=== PATIENT | male | born 1950 | race Caucasian/White ===

== ENCOUNTER 2020-09-28 12:07 | Inpatient (IN) | payer MEDICARE, OTHER ==
--- NOTE | 2020-09-28 12:55 | ED ---
General Adult HPI - General Chief complaint: Recheck/Abnormal Lab/Rx Stated complaint: bilat feet swelling Time Seen by Provider: 09/28/20 12:26 Source: patient, family, RN notes reviewed Mode of arrival: wheelchair Limitations: physical limitation - History of Present Illness Initial comments: Patient is a pleasant 69-year-old male presenting to the emergency department with his brother for evaluation of his feet. Patient brother generally checks on him however had surgery and was able to get over there for a few weeks. Patient does have some baseline memory problems. Patient states his feet do not bother him. Brother states when he took his socks off there was a strand of cough around the left great toe. Patient states feet look bad yesterday and look a little bit worse today. No fevers. Brother states patient does drink a lot of alcohol however patient denies this. - Related Data Home Medications Medication Instructions Recorded Confirmed No Known Home Medications 09/28/20 09/28/20 Allergies Allergy/AdvReac Type Severity Reaction Status Date / Time No Known Allergies Allergy Verified 09/28/20 13:40 Review of Systems ROS Statement: Those systems with pertinent positive or pertinent negative responses have been documented in the HPI. ROS Other: All systems not noted in ROS Statement are negative. Constitutional: Denies: fever Eyes: Denies: eye pain ENT: Denies: ear pain Respiratory: Denies: cough Cardiovascular: Denies: chest pain Endocrine: Denies: fatigue Gastrointestinal: Denies: abdominal pain Genitourinary: Denies: dysuria Musculoskeletal: Denies: back pain Skin: Reports: as per HPI Past Medical History Past Medical History: Unable to Obtain History of Any Multi-Drug Resistant Organisms: None Reported Past Surgical History: Unable to Obtain Past Psychological History: No Psychological Hx Reported Smoking Status: Current every day smoker Past Alcohol Use History: Abuse, Daily, Heavy Past Drug Use History: None Reported General Exam Limitations: physical limitation General appearance: alert, in no apparent distress Head exam: Present: normocephalic Eye exam: Present: normal appearance ENT exam: Present: normal oropharynx Neck exam: Present: normal inspection Respiratory exam: Present: normal lung sounds bilaterally Cardiovascular Exam: Present: regular rate, normal rhythm Expanded Peripheral pulses: 2+: Dorsalis Pedis (R), Dorsalis Pedis (L) GI/Abdominal exam: Present: soft. Absent: tenderness Extremities exam: Present: other (Left great toe with swelling and discoloration, laceration on the dorsal aspect with contaminated hair. Nontender. Right third and fourth toes with swelling and third toe with dorsal small skin laceration as well also contaminated with hair) Neurological exam: Present: alert Psychiatric exam: Present: normal affect, normal mood Skin exam: Present: other (Left great toe swelling and dark discoloration. Mild discoloration right third and fourth toes numb erythema dorsal right foot near the toes extending towards the midfoot) Course Vital Signs 09/28/20 09/28/20 12:15 13:45 Temperature 98.4 F Pulse Rate 87 82 Respiratory 18 18 Rate Blood Pressure 152/89 128/81 O2 Sat by Pulse 98 99 Oximetry EKG Findings - EKG Comments: EKG Findings:: Normal sinus rhythm 89. MS 16. QRS 144. QT 428. QTC 520. Normal axis. Right bundle branch block. No acute ST change. Medical Decision Making - Medical Decision Making Patient reevaluated. Patient and family updated on results and plan. Case was discussed in detail with Dr. coulter, who will admit covering hospital call. - Lab Data Result diagrams: 09/28/20 12:55 09/28/20 12:55 Lab Results 09/28/20 09/28/20 09/28/20 Range/Units 12:55 12:55 12:55 WBC 4.3 (3.8-10.6) k/uL RBC 4.95 (4.30-5.90) m/uL Hgb 15.6 (13.0-17.5) gm/dL Hct 45.1 (39.0-53.0) % MCV 91.0 (80.0-100.0) fL MCH 31.6 (25.0-35.0) pg MCHC 34.7 (31.0-37.0) g/dL RDW 12.7 (11.5-15.5) % Plt Count 328 (150-450) k/uL MPV 7.3 Neutrophils % 64 % Lymphocytes % 27 % Monocytes % 6 % Eosinophils % 1 % Basophils % 0 % Neutrophils # 2.8 (1.3-7.7) k/uL Lymphocytes # 1.2 (1.0-4.8) k/uL Monocytes # 0.3 (0-1.0) k/uL Eosinophils # 0.1 (0-0.7) k/uL Basophils # 0.0 (0-0.2) k/uL PT 11.1 (9.0-12.0) sec INR 1.0 (<1.2) APTT 23.8 (22.0-30.0) sec Sodium 136 L (137-145) mmol/L Potassium 3.4 L (3.5-5.1) mmol/L Chloride 94 L (98-107) mmol/L Carbon Dioxide 34 H (22-30) mmol/L Anion Gap 8 mmol/L BUN 6 L (9-20) mg/dL Creatinine 0.55 L (0.66-1.25) mg/dL Est GFR (CKD-EPI)AfAm >90 (>60 ml/min/1.73 sqM) Est GFR (CKD-EPI)NonAf >90 (>60 ml/min/1.73 sqM) Glucose 196 H (74-99) mg/dL Plasma Lactic Acid Maximiliano (0.7-2.0) mmol/L Calcium 9.4 (8.4-10.2) mg/dL Total Bilirubin 1.3 (0.2-1.3) mg/dL AST 65 H (17-59) U/L ALT 20 (4-49) U/L Alkaline Phosphatase 142 H (38-126) U/L Total Protein 7.2 (6.3-8.2) g/dL Albumin 4.0 (3.5-5.0) g/dL Serum Alcohol <10 mg/dL Coronavirus (PCR) (Not Detectd) 09/28/20 09/28/20 Range/Units 12:55 12:59 WBC (3.8-10.6) k/uL RBC (4.30-5.90) m/uL Hgb (13.0-17.5) gm/dL Hct (39.0-53.0) % MCV (80.0-100.0) fL MCH (25.0-35.0) pg MCHC (31.0-37.0) g/dL RDW (11.5-15.5) % Plt Count (150-450) k/uL MPV Neutrophils % % Lymphocytes % % Monocytes % % Eosinophils % % Basophils % % Neutrophils # (1.3-7.7) k/uL Lymphocytes # (1.0-4.8) k/uL Monocytes # (0-1.0) k/uL Eosinophils # (0-0.7) k/uL Basophils # (0-0.2) k/uL PT (9.0-12.0) sec INR (<1.2) APTT (22.0-30.0) sec Sodium (137-145) mmol/L Potassium (3.5-5.1) mmol/L Chloride (98-107) mmol/L Carbon Dioxide (22-30) mmol/L Anion Gap mmol/L BUN (9-20) mg/dL Creatinine (0.66-1.25) mg/dL Est GFR (CKD-EPI)AfAm (>60 ml/min/1.73 sqM) Est GFR (CKD-EPI)NonAf (>60 ml/min/1.73 sqM) Glucose (74-99) mg/dL Plasma Lactic Acid Maximiliano 2.3 H* (0.7-2.0) mmol/L Calcium (8.4-10.2) mg/dL Total Bilirubin (0.2-1.3) mg/dL AST (17-59) U/L ALT (4-49) U/L Alkaline Phosphatase (38-126) U/L Total Protein (6.3-8.2) g/dL Albumin (3.5-5.0) g/dL Serum Alcohol mg/dL Coronavirus (PCR) Not Detected (Not Detectd) - Radiology Data Radiology results: image reviewed (X-ray left foot without convincing evidence for Ostermann myelitis. X-ray right foot concerning for osteomyelitis second middle phalangeal shaft.) Disposition Clinical Impression: Osteomyelitis Disposition: ADMITTED IP TO THIS HOSP Is patient prescribed a controlled substance at d/c from ED?: No Referrals: None,Stated [Primary Care Provider] - 1-2 days Decision Time: 14:16
[2020-09-28 13:21] LABS: Basophils % (A) 0 %; Eosinophils # (A) 0.1 k/uL (0-0.7); Eosinophils % (A) 1 %; HCT 45.1 % (39.0-53.0); HGB 15.6 gm/dL (13.0-17.5); Lymphocytes # (A) 1.2 k/uL (1.0-4.8); Lymphocytes % (A) 27 %; MCH 31.6 pg (25.0-35.0); MCHC 34.7 g/dL (31.0-37.0); Mean Platelet Volume 7.3; Monocytes # (A) 0.3 k/uL (0-1.0); Monocytes % (A) 6 %; Neutrophils # (A) 2.8 k/uL (1.3-7.7); Neutrophils % (A) 64 %; Platelet Count 328 k/uL (150-450); RBC 4.95 m/uL (4.30-5.90); RDW 12.7 % (11.5-15.5); WBC 4.3 k/uL (3.8-10.6)
[2020-09-28 13:31] LABS: Partial Thromboplastin Time 23.8 sec (22.0-30.0); Prothrombin Time 11.1 sec (9.0-12.0)
[2020-09-28 13:47] LABS: ALT 20 U/L (4-49); AST 65 U/L (17-59); African American GFR (CKD) >90 (>60 ml/min/1.73 sqM); Alcohol <10 mg/dL; Alkaline Phosphatase 142 U/L (38-126); Anion Gap 8 mmol/L; Blood Urea Nitrogen 6 mg/dL (9-20); Calcium 9.4 mg/dL (8.4-10.2); Carbon Dioxide 34 mmol/L (22-30); Chloride 94 mmol/L (98-107); Glucose 196 mg/dL (74-99); Non-African American GFR(CKD) >90 (>60 ml/min/1.73 sqM); Potassium 3.4 mmol/L (3.5-5.1); Sodium 136 mmol/L (137-145); Total Bilirubin 1.3 mg/dL (0.2-1.3); Total Protein 7.2 g/dL (6.3-8.2)
--- NOTE | 2020-09-28 13:51 | XR ---
EXAMINATION TYPE: XR chest 2V DATE OF EXAM: 09/28/2020 COMPARISON: None HISTORY: 69-year-old male with weakness TECHNIQUE: AP and lateral views FINDINGS: Heart upper limits of normal size. Aorta and pulmonary vasculature are within normal limits. Hazy beka g densities relating to portable technique and patient body habitus. No yuri consolidation or pleura l effusion. IMPRESSION: No definite acute process.
--- NOTE | 2020-09-28 13:54 | XR ---
EXAMINATION TYPE: XR foot complete bilateral DATE OF EXAM: 09/28/2020 Comparison: None Clinical History: 69-year-old male multiple wounds, pain, infection Findings: Left: Os intermetatarseum noted on the lateral view. No discrete lytic destruction identified. Mild degener ative change of the first MTP joint. Right: Moderate degenerative change of the first MTP joint with bunion formation. Some focal osteolysis invo lving the lateral plantar aspect of the second middle phalangeal shaft. The AP and oblique views are annotated. No additional discrete lytic destruction is seen. Impression: 1. Left: No convincing evidence for osteomyelitis at this time. 2. Right: Focal osteolysis involving the lateral plantar aspect of the second middle phalangeal shaft . Findings highly concerning for osteomyelitis. 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
[2020-09-28] MEDS ORDERED: VANCOMYCIN IV PER PHARMACY 1 EACH MISC MISCELLANE PRN (14:19)
[2020-09-28] MEDS ORDERED: NALOXONE 0.4 MG/ML 1 ML VIAL IV PRN (14:20)
[2020-09-28] MEDS ORDERED: VANCOMYCIN 1,500 MG in SODIUM CHLORIDE 0.9% 250 ML IVPB STA (14:27)
[2020-09-28] MEDS ORDERED: LORazepam 2 MG/ML INJ IV PRN ×2 (14:28)
[2020-09-28] MEDS ORDERED: PIPERACILLIN-TAZOBACTAM 3.375 GM in SODIUM CHLORIDE 0.9% 100 ML IVPB SCH (16:00)
[2020-09-28] MEDS ORDERED: TEMAZEPAM 15 MG CAP PO PRN (16:57)
[2020-09-28] MEDS: THIAMINE 100 MG TAB PO SCH (17:39)
--- NOTE | 2020-09-28 17:56 | HP ---
HISTORY AND PHYSICAL DATE OF SERVICE: 09/28/2020 CHIEF COMPLAINT: Bilateral feet swelling and ulceration. HISTORY OF PRESENT ILLNESS: This 69-year-old gentleman with a past medical history of multiple medical problems, including history of ETOH, history of memory impairment, dementia, history of heavy alcohol abuse and nicotine dependence, not being followed by any primary physician, apparently was living by himself. The patient's brother apparently was taking care of him and the brother apparently went for surgery and has not been able to be there for the past few weeks. The patient was found to have bilateral leg ulcers, pain and difficulties and gangrene, and the patient was taken to [facility] and admitted for further evaluation and treatment. The patient had features of early sepsis, also. Lactic acid was elevated at 2.3. COVID-19 was negative. There is no history of any fever, rigor or chills. No history of headache, loss of consciousness, seizures. PAST MEDICAL HISTORY: History of memory impairment, ETOH, nicotine dependence. HOME MEDICATIONS: None. ALLERGIES: NONE. FAMILY HISTORY: History of CAD, CABG. SOCIAL HISTORY: History of smoking, alcohol as mentioned. REVIEW OF SYSTEMS: ENT: Diminished hearing. Diminished vision. CARDIOVASCULAR SYSTEM: No angina, palpitations. RESPIRATORY SYSTEM: No cough, hemoptysis. GI: No nausea, vomiting. : No dysuria or retention. NERVOUS SYSTEM: No numbness, weakness. ALLERGY/IMMUNOLOGY: No asthma, hayfever. MUSCULOSKELETAL: As mentioned earlier. HEMATOLOGY/ONCOLOGY: No history of anemia. ENDOCRINE: No history of diabetes, hypothyroidism. CONSTITUTIONAL: As mentioned earlier. DERMATOLOGY: Negative. RHEUMATOLOGY: Negative. PSYCHIATRY: As mentioned earlier. PHYSICAL EXAMINATION: Patient alert and oriented x3. Pulse 70, blood pressure 148/80, respiration 17, temperature 98.2, pulse ox 94% on room air. HEENT: Conjunctivae normal. Oral mucosa moist. NECK: No jugular venous distention. No carotid bruit. No lymph node enlargement. CARDIOVASCULAR SYSTEM: S1, S2 muffled. No S3. No S4. RESPIRATORY SYSTEM: Breath sounds diminished at the bases. A few scattered rhonchi and crackles. ABDOMEN: Soft, non-tender. No mass palpable. LEGS: Significant bilateral leg ulcerations and evidence of cellulitis and gangrene also present. SKIN: As mentioned earlier. JOINTS: No active deforming arthropathy. NERVOUS SYSTEM: Higher functions as mentioned earlier. No focal motor deficit except some weakness in both lower legs. LABS: WBC 4.3, hemoglobin 15.2. Sodium 136, potassium 3.4. Plasma lactic acid 2.3. ASSESSMENT: 1. Bilateral leg gangrene and ulcerations with sepsis, present on admission. 2. Hyponatremia. 3. Hypokalemia. 4. Elevated plasma lactic acid. 5. Elevated AST. 6. History of ETOH. 7. History of nicotine dependence. 8. Possible depression. 9. History of dementia, memory impairment. 10.FULL CODE. RECOMMENDATIONS AND DISCUSSION: In this 69-year-old gentleman who presented with multiple complex medical issues, we will monitor the patient closely, continue the current medications, continue with symptomatic treatment. Will initiate broad-spectrum IV antibiotics, infectious disease evaluation. I would also recommend vascular surgery consultation. Other than that, [facility] protocol. PT/OT evaluation, possible ECF rehab. bible worker and skilled nursing case manager to evaluate the home situation. Overall prognosis remains extremely guarded because of multiple complex medical issues. Further recommendations to follow. MMODL / IJN: [id number] /
--- NOTE | 2020-09-28 18:38 | P.GSCN ---
History of Present Illness History of present illness: 69-year-old white male came to the emergency room with history of deep wound on the left foot big toe at the metatarsophalangeal joint on the dorsal aspect deep to the joint. And also right foot second toe has a deep wound on the dorsal aspect of the second toe patient has history of dementia does not remember how this happened. Patient also has a history of drinking on daily basis with smoking. Medical history is not known and patient has no primary care physician Neck examination neck is supple no bruit appreciated Chest clear first and second sound present Abdomen soft nontender Vascular examination right femoral is not palpable left femoral is 2+ posterior tibial dorsal pedis by the Doppler patient has a deep wound on his left foot at metatarsophalangeal joint down to the bone and also on the right foot second toe defect noted on the second toe Plan is IV antibiotic and we did the wound care on the both right and left foot we will get history from his brother and most likely he will lose his left foot toe we'll follow with you Past Medical History Past Medical History: Memory Impairment Additional Past Medical History / Comment(s): ETOH/past withdrawal with shaking and incontinence of stool, disc problems/cervical and back pain-was on morphine P.O for 6 years then taken off approximately one year ago, bilateral feet numbness, 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 History of Any Multi-Drug Resistant Organisms: None Reported Past Surgical History: Ear Surgery Additional Past Surgical History / Comment(s): L ear surgery/wire Past Anesthesia/Blood Transfusion Reactions: No Reported Reaction Smoking Status: Current every day smoker - Past Family History Father Family Medical History: Coronary Artery Disease (CAD) Additional Family Medical History / Comment(s): Father had CABG. He lived to be 92 yrs old. Mother Family Medical History: No Reported History Additional Family Medical History / Comment(s): Mother lived to be 90yrs old. She was a smoker. Medications and Allergies Home Medications Medication Instructions Recorded Confirmed Type No Known Home Medications 09/28/20 09/28/20 History Allergies Allergy/AdvReac Type Severity Reaction Status Date / Time No Known Allergies Allergy Verified 09/28/20 13:40 Surgical - Exam Vital Signs Temp Pulse Resp BP Pulse Ox 98.4 F 87 18 152/89 98 09/28/20 12:15 09/28/20 12:15 09/28/20 12:15 09/28/20 12:15 09/28/20 12:15 Results - Labs 09/28/20 12:55 09/28/20 12:55 Abnormal Lab Results - Last 24 Hours (Table) 09/28/20 09/28/20 Range/Units 12:55 12:59 Sodium 136 L (137-145) mmol/L Potassium 3.4 L (3.5-5.1) mmol/L Chloride 94 L (98-107) mmol/L Carbon Dioxide 34 H (22-30) mmol/L BUN 6 L (9-20) mg/dL Creatinine 0.55 L (0.66-1.25) mg/dL Glucose 196 H (74-99) mg/dL Plasma Lactic Acid Maximiliano 2.3 H* (0.7-2.0) mmol/L AST 65 H (17-59) U/L Alkaline Phosphatase 142 H (38-126) U/L Diabetes panel 09/28/20 Range/Units 12:55 Sodium 136 L (137-145) mmol/L Potassium 3.4 L (3.5-5.1) mmol/L Chloride 94 L (98-107) mmol/L Carbon Dioxide 34 H (22-30) mmol/L BUN 6 L (9-20) mg/dL Creatinine 0.55 L (0.66-1.25) mg/dL Glucose 196 H (74-99) mg/dL Calcium 9.4 (8.4-10.2) mg/dL AST 65 H (17-59) U/L ALT 20 (4-49) U/L Alkaline Phosphatase 142 H (38-126) U/L Total Protein 7.2 (6.3-8.2) g/dL Albumin 4.0 (3.5-5.0) g/dL Calcium panel 09/28/20 Range/Units 12:55 Calcium 9.4 (8.4-10.2) mg/dL Albumin 4.0 (3.5-5.0) g/dL Pituitary panel 09/28/20 Range/Units 12:55 Sodium 136 L (137-145) mmol/L Potassium 3.4 L (3.5-5.1) mmol/L Chloride 94 L (98-107) mmol/L Carbon Dioxide 34 H (22-30) mmol/L BUN 6 L (9-20) mg/dL Creatinine 0.55 L (0.66-1.25) mg/dL Glucose 196 H (74-99) mg/dL Calcium 9.4 (8.4-10.2) mg/dL Adrenal panel 09/28/20 Range/Units 12:55 Sodium 136 L (137-145) mmol/L Potassium 3.4 L (3.5-5.1) mmol/L Chloride 94 L (98-107) mmol/L Carbon Dioxide 34 H (22-30) mmol/L BUN 6 L (9-20) mg/dL Creatinine 0.55 L (0.66-1.25) mg/dL Glucose 196 H (74-99) mg/dL Calcium 9.4 (8.4-10.2) mg/dL Total Bilirubin 1.3 (0.2-1.3) mg/dL AST 65 H (17-59) U/L ALT 20 (4-49) U/L Alkaline Phosphatase 142 H (38-126) U/L Total Protein 7.2 (6.3-8.2) g/dL Albumin 4.0 (3.5-5.0) g/dL
[2020-09-28] MEDS: HEPARIN SODIUM,PORCINE 5,000 UNIT/ML 1 ML VIAL SQ SCH (20:00)
[2020-09-28] MEDS: FORMOTEROL FUMARATE 20 MCG/2 ML NEBU INHALATION SCH (20:11)
--- NOTE | 2020-09-28 23:25 | CONS ---
CONSULTATION DATE OF SERVICE: 09/28/2020 REASON FOR STAY: Left big toe and right second toe wound and concern for underlying osteomyelitis. INTERVAL HISTORY: The patient is a 69-year-old man with past medical history significant for baseline memory problems and has been taking care of at home by his brother. Apparently the brother did have some surgery and was not able to check on him for the last few weeks. When he went to see him today, the patient was noticed to have a wound on his left big toe and right second toe with some foul-smelling drainage on the socks. The patient mentioned his stools have been getting worse for the last few days. The patient denies having any history of any trauma. He did have mild dull aching pain to the left big toe and right second toe, 3 to 4 out of 10 and no radiation. The patient denies having any fever or any chills. With these symptoms, the patient was evaluated by the ER physician. On arrival to the ER, the patient was afebrile. The patient did have a normal white count. He did have x-rays of both feet. Left foot did not show any osteomyelitis. Right foot did show some osteomyelitis to the second toe. The patient did have mildly elevated lactic is 2.3. Creatinine was normal. Laboy PCR was negative. The patient was started on Zosyn and vancomycin and admitted to the hospital. Infectious Disease was consulted for further management of antibiotic therapy. REVIEW OF SYSTEMS: Positive points have been mentioned in HPI. Rest of systems are negative. PAST MEDICAL HISTORY: Memory impairment, alcohol abuse and nicotine dependence. PAST SURGICAL HISTORY: History of no major surgeries. FAMILY HISTORY: Positive coronary artery disease. SOCIAL HISTORY: Positive smoking and drinking. No drug use. ALLERGIES: No known drug allergies. MEDICATIONS: The patient is currently on Zosyn, Eliquis, folic acid, heparin, Dilaudid, Ativan, multivitamin, Narcan, nicotine patch, Protonix, Restoril and vancomycin. PHYSICAL EXAMINATION: Blood pressure 136/76, pulse of 72, temperature 98.9. He is 94% on room air. General description: The patient is an elderly male lying in bed in no distress. No tachypnea or accessory muscles of respiration use. HEENT: Examination shows no pallor or scleral icterus. Oral mucous membranes dry. NECK: Trachea central. No thyromegaly. LUNGS: Unlabored breathing. Clear to auscultation anteriorly. No wheeze or crackles. HEART S1, S2. Regular rate and rhythm. ABDOMEN: Soft, no tenderness. No guarding. No rigidity. EXTREMITIES: No edema of the feet. Examination of the left big toe did have a deep wound with possible extension down to the interphalangeal joint with some instability, foul-smelling. Cultures were obtained. Right 2nd toe wound does not look as deep. With the surrounding swelling, redness and minimal foul-smelling drainage. NEUROLOGICAL: Patient is awake, alert, oriented x3. Mood and affect normal. LABS: Hemoglobin is 15.6, white count of 4.3, BUN of 6, creatinine 0.55. Lactic acid 2.3. X- ray report as mentioned above. DIAGNOSTIC IMPRESSION AND PLAN: 1. Patient with left big toe wound, which seems to be deep extending to the interphalangeal joint concerning for possible septic arthritis and likely osteomyelitis and the x-ray did not show any abnormality and we will need to cover for the Gram-positive as well as Gram-negative pathogen in this patient with likely underlying PAD and significant history of smoking. 2. Right second toe wound with neurological evidence of osteo. PLAN: 1. Vancomycin, pharmacy to dose target of 15 while watching his kidney function closely. 2. Discontinue Zosyn and Unasyn to decrease risk of nephrotoxicity. 3. We will follow on his clinical condition and culture to further adjust medication if needed. Thank you for this consultation. We will follow this patient along with you. MMODL / IJN: [id number] /
[2020-09-28] MEDS: VANCOMYCIN 1,500 MG in SODIUM CHLORIDE 0.9% 250 ML IVPB SCH (23:34)
[2020-09-28] MEDS: AMPICILLIN-SULBACTAM 3 GM in SODIUM CHLORIDE 0.9% 100 ML IVPB SCH (23:34)
[2020-09-29] MEDS: AMPICILLIN-SULBACTAM 3 GM in SODIUM CHLORIDE 0.9% 100 ML IVPB SCH ×4 (05:20→23:09)
[2020-09-29] MEDS: VANCOMYCIN 1,500 MG in SODIUM CHLORIDE 0.9% 250 ML IVPB SCH ×3 (07:32→23:08)
[2020-09-29] MEDS: HEPARIN SODIUM,PORCINE 5,000 UNIT/ML 1 ML VIAL SQ SCH ×2 (07:35→19:59)
[2020-09-29] MEDS: PANTOPRAZOLE 40 MG TABLET PO SCH (08:09)
[2020-09-29] MEDS: THIAMINE 100 MG TAB PO SCH ×2 (08:17→17:23)
[2020-09-29] MEDS: MULTIVITAMINS, THERA 1 EACH TAB PO SCH (08:18)
[2020-09-29] MEDS: NICOTINE 14MG/24HR PATCH TRANSDERM SCH (08:19)
[2020-09-29] MEDS: FORMOTEROL FUMARATE 20 MCG/2 ML NEBU INHALATION SCH ×2 (08:48→20:56)
[2020-09-29 08:53] LABS: Appearance,Urine Clear (Clear); Bilirubin,Urine Negative (Negative); Blood,Urine Negative (Negative); Color,Urine Yellow; Glucose,Urine (UA) Negative (Negative); Ketones,Urine Negative (Negative); Leukocyte Esterase,Urine Negative (Negative); Nitrite,Urine Negative (Negative); Protein,Urine Negative (Negative); Specific Gravity,Urine 1.018 (1.001-1.035)
[2020-09-29 09:13] LABS: Basophils # (A) 0.02 X 10*3/uL (0.00-0.10); Basophils % (A) 0.5 %; Eosinophils # (A) 0.03 X 10*3/uL (0.04-0.35); Eosinophils % (A) 0.7 %; HCT 37.4 % (39.6-50.0); Lymphocytes # (A) 1.22 X 10*3/uL (0.90-5.00); MCH 31.7 pg (27.0-32.0); MCHC 34.8 g/dL (32.0-37.0); MCV 91.2 fL (80.0-97.0); Mean Platelet Volume 9.7 fL (9.5-12.2); Monocytes # (A) 0.42 X 10*3/uL (0.20-1.00); Neutrophils % (A) 59.6 %; Platelet Count 269 X 10*3/uL (140-440); RDW 12.2 % (11.5-14.5)
[2020-09-29 09:23] LABS: African American GFR (CKD) 119.7 (60.0-200.0); BUN/Creat Ratio 16.67 Ratio (12.00-20.00); Calcium 8.6 mg/dL (8.7-10.3); Non-African American GFR(CKD) 103.3 (60.0-200.0)
[2020-09-29] MEDS: LORazepam 2 MG/ML INJ IV PRN ×2 (11:05→19:58)
[2020-09-29] MEDS: FOLIC ACID 1 MG TAB PO SCH (12:08)
[2020-09-29] MEDS ORDERED: Potassium Replacement Protocol 1 EACH MISC MISCELLANE PRN (12:51)
[2020-09-29] MEDS ORDERED: LACTATED RINGERS 1,000 ML IV ONE (13:36)
[2020-09-29 13:37] LABS: Glucose,Whole Blood 115 mg/dL (75-99)
[2020-09-29] MEDS: POTASSIUM CHLORIDE 20 MEQ in WATER FOR INJECTION 1 100ML.BAG IVPB SCH ×3 (13:37→18:00)
[2020-09-29] MEDS ORDERED: MIDAZOLAM 2 MG/2 ML VIAL ONE (13:56)
[2020-09-29] MEDS ORDERED: fentaNYL (PF) 50 MCG/ML 2 ML AMP ONE (13:56)
[2020-09-29] MEDS ORDERED: PROPOFOL 10 MG/ML 20 ML VIAL IV ONE (13:56)
[2020-09-29] MEDS ORDERED: SODIUM CHLORIDE 0.9% 250 ML IV ONE (14:02)
[2020-09-29] MEDS ORDERED: LIDOCAINE 1% INJ 10MG/ML (20 ML MDV) SQ ONE ×2 (14:14)
[2020-09-29] MEDS: ENALAPRILAT 1.25 MG/ML 1 ML VIAL IV ONE ×2 (15:40→15:56)
[2020-09-29] MEDS ORDERED: Magnesium Replacement Protocol 1 EACH MISC MISCELLANE PRN (16:08)
--- NOTE | 2020-09-29 16:37 | PN ---
PROGRESS NOTE DATE OF SERVICE: 09/29/2020 This 69-year-old gentleman who was admitted with bilateral leg gangrene is being closely monitored. The patient also had some change in mental status also. Patient had history of EtOH. EtOH level was less than 10. Dr. Ruvalcaba is planning surgery. White count is 4.2, sodium is 137 and potassium is also 3 which is hypokalemic. PAST MEDICAL HISTORY: Reviewed. REVIEW OF SYSTEMS: CARDIOVASCULAR SYSTEM: No angina, RESPIRATORY SYSTEM: As mentioned earlier. GI: As mentioned earlier. : No dysuria. NERVOUS SYSTEM: No numbness or weakness. CURRENT MEDICATIONS: Current medications are reviewed and include Unasyn, folic acid, heparin, Dilaudid, Ativan, Protonix, vancomycin. PHYSICAL EXAMINATION: The patient is alert and oriented x3. Pulse is 69, blood pressure 160/91, respirations 16, temperature 97.5, pulse ox 98% on room air. HEENT: Conjunctivae normal. NECK: No jugular venous distention. CARDIOVASCULAR: S1, S2 muffled. RESPIRATORY: Breath sounds diminished at the bases. A few rhonchi. No crackles. ABDOMEN: Soft, nontender. LEGS: Bilateral leg cellulitis and edema and swelling and weakness also present. NERVOUS SYSTEM: Diffuse weakness in the lower legs. LABS: WBC 4.2, hemoglobin 13. ASSESSMENT: 1. Bilateral leg gangrene and ulcerations with sepsis, present on admission. 2. Hyponatremia. 3. Hypokalemia. 4. Possible peripheral neuropathy. 5. Elevated plasma lactic acid. 6. Elevated AST. 7. History of EtOH. 8. History of nicotine dependence. 9. Possible depression. 10.History of dementia, memory impairment. 11.Poor social support. 12.FULL CODE. RECOMMENDATIONS AND DISCUSSION: I recommend to continue current medications, continue symptomatic treatment. Otherwise, continue with the broad-spectrum IV antibiotics. Cultures of the are pending. We will follow the patient closely with Dr. Ruvalcaba. Supplement potassium and check magnesium and magnesium and potassium protocols. Prognosis guarded because of multiple complex medical issues. Continue with IV Unasyn and follow the cultures. Guarded prognosis. Further recommendations to follow. MMODL / IJN: [id number] / MTDD
--- NOTE | 2020-09-29 17:10 | OP ---
DATE OF PROCEDURE 09/29/2020 OPERATIVE REPORT PREOPERATIVE DIAGNOSES: 1. Infected wound, left foot big toe. 2. Right foot second toe infected wound. POSTOPERATIVE DIAGNOSES: 1. Infected wound, left foot big toe. 2. Right foot second toe infected wound. OPERATION: 1. Left big toe amputation at metatarsophalangeal joint. 2. Right foot second toe amputation at metatarsophalangeal joint. ANESTHESIA: IV sedation. PROCEDURE IN DETAIL: This patient was brought to the operating room. Left foot and right foot were prepped and draped in the usual sterile manner. Circular incision was made at the metatarsophalangeal joint area. Anterior flap was created and tendons were divided and incision was extended to the posterior aspect of the foot at metatarsophalangeal joint, deepened through skin, fat and fascia, and tendons were divided. There were some digital vessels which were suture-ligated. There were some ligaments which were divided at the metatarsophalangeal joint. Specimen was removed. Wound was copiously irrigated with saline and hemostasis was well controlled. Fascia and subcutaneous tissue was approximated with 3-0 Vicryl and skin was closed with 4-0 nylon with interrupted sutures. After that, incision was made on the right foot second toe. Incision was made on the plantar aspect, elliptical incision, deepened through skin, fat and fascia and the tendons. It went circumferentially around the second toe to the plantar aspect of the foot and tendons were divided and digital vessels were suture-ligated. Specimen was removed. Hemostasis was well controlled. Wound was irrigated with saline. Incision was closed in 2 layers using 3-0 Vicryl and skin was closed with 4-0 nylon with interrupted suture. Dressing was applied. Patient tolerated the procedure well. MMODL / IJN: [id number] / [facility]ITALAmita
[2020-09-29] MEDS: cloNIDine HCL 0.1 MG TAB PO PRN (20:16)
[2020-09-29] MEDS: POTASSIUM CHLORIDE ER 20 MEQ TAB.ER PO SCH (23:07)
--- NOTE | 2020-09-29 23:36 | PN ---
PROGRESS NOTE DATE OF SERVICE: 09/29/2020 REASON FOR FOLLOWUP: Left big toe and right second toe infection. INTERVAL HISTORY: The patient is currently afebrile. The patient is breathing comfortably. The patient denies having any chest pain, shortness of breath or cough. No nausea. No vomiting. No abdominal pain or any worsening pain to the toe area. PHYSICAL EXAMINATION: Blood pressure 162/94, pulse of 80, temperature 97.4. He is 94% on room air. General description is an elderly male lying in bed in no distress. RESPIRATORY SYSTEM: Unlabored breathing. Clear to auscultation anteriorly. HEART: S1, S2. Regular rate and rhythm. ABDOMEN: Soft. No tenderness. Bilateral toe wounds are currently dressed. No drainage on the dressing. LABS: Hemoglobin is 13, white count of 4.20, BUN of 10, creatinine 0.6. Cultures currently pending. DIAGNOSTIC IMPRESSION AND PLAN: Patient with left big toe and right second toe wounds with secondary infection in this patient who is status post amputation of left big toe and right second toe per Vascular Surgery. Cultures have been obtained. Those will be followed. Patient is covered with Unasyn and vancomycin; to continue while monitoring his clinical course closely. Continue with supportive care. MMODL / IJN: [id number] /
[2020-09-30] MEDS: POTASSIUM CHLORIDE ER 20 MEQ TAB.ER PO SCH ×3 (00:17→14:45)
[2020-09-30] MEDS: AMPICILLIN-SULBACTAM 3 GM in SODIUM CHLORIDE 0.9% 100 ML IVPB SCH ×4 (05:23→23:35)
[2020-09-30] MEDS: cloNIDine HCL 0.1 MG TAB PO PRN ×3 (05:23→17:36)
[2020-09-30] MEDS: HYDROmorphone 0.5 MG/0.5 ML SYRINGE IVP PRN ×2 (05:23→17:36)
[2020-09-30] MEDS: LORazepam 2 MG/ML INJ IV PRN ×2 (05:45→08:02)
[2020-09-30] MEDS ORDERED: VANCOMYCIN TROUGH DUE 1 EACH MISC MISCELLANE ONE (07:00)
[2020-09-30] MEDS: PANTOPRAZOLE 40 MG TABLET PO SCH (07:55)
[2020-09-30] MEDS: MULTIVITAMINS, THERA 1 EACH TAB PO SCH (07:55)
[2020-09-30] MEDS: VANCOMYCIN 1,500 MG in SODIUM CHLORIDE 0.9% 250 ML IVPB SCH ×2 (07:55→20:15)
[2020-09-30] MEDS: THIAMINE 100 MG TAB PO SCH ×2 (07:55→17:36)
[2020-09-30] MEDS: HEPARIN SODIUM,PORCINE 5,000 UNIT/ML 1 ML VIAL SQ SCH ×2 (07:55→20:15)
[2020-09-30] MEDS: NICOTINE 14MG/24HR PATCH TRANSDERM SCH (07:56)
[2020-09-30] MEDS: FORMOTEROL FUMARATE 20 MCG/2 ML NEBU INHALATION SCH ×2 (08:43→21:00)
[2020-09-30 08:52] LABS: Basophils # (A) 0.02 X 10*3/uL (0.00-0.10); Basophils % (A) 0.4 %; Eosinophils # (A) 0.04 X 10*3/uL (0.04-0.35); Eosinophils % (A) 0.8 %; HCT 37.8 % (39.6-50.0); HGB 13.3 g/dL (13.0-17.0); Lymphocytes # (A) 1.17 X 10*3/uL (0.90-5.00); MCH 31.7 pg (27.0-32.0); MCHC 35.2 g/dL (32.0-37.0); MCV 90.2 fL (80.0-97.0); Mean Platelet Volume 9.8 fL (9.5-12.2); Monocytes % (A) 9.4 %; Neutrophils # (A) 3.56 X 10*3/uL (1.80-7.70); Platelet Count 268 X 10*3/uL (140-440); RBC 4.19 X 10*6/uL (4.40-5.60); RDW 12.2 % (11.5-14.5); WBC 5.31 X 10*3/uL (4.50-10.00)
[2020-09-30 11:27] LABS: African American GFR (CKD) 119.7 (60.0-200.0); Anion Gap 5.4 mmol/L (4.00-12.00); Carbon Dioxide 30.6 mmol/L (21.6-31.8); Magnesium 1.5 mg/dL (1.5-2.4); Non-African American GFR(CKD) 103.3 (60.0-200.0); Potassium 3.5 mmol/L (3.5-5.5)
[2020-09-30] MEDS ORDERED: Potassium Replacement Protocol 1 EACH MISC MISCELLANE PRN (11:56)
[2020-09-30] MEDS: FOLIC ACID 1 MG TAB PO SCH (12:19)
[2020-09-30] MEDS: MAGNESIUM SULFATE-D5W PMX 1 GM in DEXTROSE/WATER 1 100ML.BAG IVPB SCH ×2 (12:57→14:45)
--- NOTE | 2020-09-30 16:36 | PN ---
PROGRESS NOTE This is a 69-year-old gentleman who had left big toe and right second toe amputation for traumatic wound. The patient is on IV antibiotic. Today we changed the dressing. Slight serous drainage noted on the stump site on the left foot. Plan is to change the dressing daily and continue with IV antibiotic. MMAMELIA / BAILEYN: [id number] /
--- NOTE | 2020-09-30 18:06 | PN ---
PROGRESS NOTE DATE OF SERVICE: 09/30/2020 This 69-year-old gentleman who was admitted with bilateral leg gangrene is being closely monitored at this time. The patient underwent surgery by Dr. Ruvalcaba. The patient underwent left big toe amputation at metatarsophalangeal joint and right foot second toe amputation at the metatarsophalangeal joint also. No chest pain. No palpitations. Past medical history reviewed. REVIEW OF SYSTEMS: CARDIOVASCULAR SYSTEM: No angina, palpitations. RESPIRATORY SYSTEM: As mentioned earlier. GI: As mentioned earlier. : No dysuria or retention. NERVOUS SYSTEM: No numbness, weakness. CURRENT MEDICATIONS: Reviewed. They include Unasyn, folic acid, Perforomist, Dilaudid, Ativan. Medications are reviewed. PHYSICAL EXAMINATION: Patient is alert, oriented x2. Pulse 83, blood pressure 159/84, respirations 16, temperature 98.4, pulse ox 97% on room air. HEENT: Conjunctivae normal. NECK: No jugular venous distention. CARDIOVASCULAR SYSTEM: S1, S2 muffled. RESPIRATORY SYSTEM: Breath sounds diminished at the bases. No rhonchi. No crackles. ABDOMEN: Soft, non-tender. LEGS: Status post surgery. Cellulitis also present. LABS: WBC 5.3, hemoglobin 13.3. ASSESSMENT: 1. Bilateral leg gangrene and ulcerations with sepsis, present on admission. 2. Status post left big toe amputation at the metatarsophalangeal joint and right foot second toe amputation at metatarsophalangeal joint for severe infection and infected wounds. 3. Hyponatremia. 4. Hypokalemia. 5. Change in mental status, metabolic encephalopathy, acute, multifactorial, possibly secondary to sepsis. 6. 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 7. Elevated plasma lactic acid. 8. Elevated AST. 9. History of ETOH. 10.History of nicotine dependence. 11.Possible depression. 12.History of dementia and memory impairment. 13.Poor social support. 14.FULL CODE. RECOMMENDATIONS AND DISCUSSION: I recommend to continue current medications, continue with the monitoring, symptomatic treatment. Otherwise at this time I recommend continuing with antibiotics, PT/OT evaluation, possible ECF rehab. Prognosis is guarded because of the multiple complex medical issues. Further recommendations to follow. MMODL / IJN: [id number] / [facility] CENTERAmita
--- NOTE | 2020-09-30 19:41 | PN ---
PROGRESS NOTE DATE OF SERVICE: 09/30/2020 REASON FOR FOLLOWUP: Left big toe and right second toe osteomyelitis. INTERVAL HISTORY: The patient is currently afebrile. The patient is breathing comfortably. No chest pain or cough. No abdominal pain or any worsening pain to the bilateral foot wound areas. PHYSICAL EXAMINATION: Blood pressure 159/84, pulse of 83, temperature 98.5. He is 97% on room air. General description is an elderly male lying in bed in no distress. RESPIRATORY SYSTEM: Unlabored breathing. Clear to auscultation anteriorly. HEART: S1, S2. Regular rate and rhythm. ABDOMEN: Soft. No tenderness. Bilateral foot wounds are currently dressed. No obvious drainage on the dressing. LABS: Hemoglobin is 13.3, white count 5.31. BUN of 6, creatinine 0.6. Wound culture is showing coagulase-negative Staph. DIAGNOSTIC IMPRESSION AND PLAN: Patient with left big toe and right second toe wounds with concern for underlying osteomyelitis, status post amputation with infected parts removed. He will not need to be on long-term antibiotic therapy. Currently covered with vancomycin and Unasyn; to continue, and continue with supportive care. MMODL / IJN: [id number] /
[2020-10-01] MEDS: AMPICILLIN-SULBACTAM 3 GM in SODIUM CHLORIDE 0.9% 100 ML IVPB SCH ×4 (05:23→23:34)
[2020-10-01] MEDS: FORMOTEROL FUMARATE 20 MCG/2 ML NEBU INHALATION SCH ×2 (07:36→20:44)
[2020-10-01] MEDS: THIAMINE 100 MG TAB PO SCH ×2 (08:05→16:19)
[2020-10-01] MEDS: NICOTINE 14MG/24HR PATCH TRANSDERM SCH (08:05)
[2020-10-01] MEDS: VANCOMYCIN 1,500 MG in SODIUM CHLORIDE 0.9% 250 ML IVPB SCH ×2 (08:05→19:56)
[2020-10-01] MEDS: HEPARIN SODIUM,PORCINE 5,000 UNIT/ML 1 ML VIAL SQ SCH ×2 (08:05→20:01)
[2020-10-01] MEDS: MULTIVITAMINS, THERA 1 EACH TAB PO SCH (08:05)
[2020-10-01] MEDS: PANTOPRAZOLE 40 MG TABLET PO SCH (08:05)
[2020-10-01] MEDS: cloNIDine HCL 0.1 MG TAB PO PRN (08:05)
[2020-10-01 09:11] LABS: Basophils % (A) 0 %; Eosinophils # (A) 0.1 k/uL (0-0.7); Eosinophils % (A) 1 %; HCT 39.7 % (39.0-53.0); HGB 13.3 gm/dL (13.0-17.5); Lymphocytes # (A) 1.1 k/uL (1.0-4.8); Lymphocytes % (A) 23 %; MCH 31.3 pg (25.0-35.0); MCHC 33.4 g/dL (31.0-37.0); MCV 93.8 fL (80.0-100.0); Mean Platelet Volume 7.9; Monocytes # (A) 0.4 k/uL (0-1.0); Monocytes % (A) 9 %; Neutrophils # (A) 3.3 k/uL (1.3-7.7); Neutrophils % (A) 66 %; Platelet Count 271 k/uL (150-450); RBC 4.24 m/uL (4.30-5.90); RDW 13.1 % (11.5-15.5); WBC 4.9 k/uL (3.8-10.6)
[2020-10-01 09:14] LABS: African American GFR (CKD) >90 (>60 ml/min/1.73 sqM); Anion Gap 8 mmol/L; Blood Urea Nitrogen 6 mg/dL (9-20); Calcium 8.7 mg/dL (8.4-10.2); Carbon Dioxide 27 mmol/L (22-30); Chloride 101 mmol/L (98-107); Glucose 128 mg/dL (74-99); Magnesium 2.1 mg/dL (1.6-2.3); Non-African American GFR(CKD) >90 (>60 ml/min/1.73 sqM); Potassium 3.6 mmol/L (3.5-5.1); Sodium 136 mmol/L (137-145)
[2020-10-01] MEDS: FOLIC ACID 1 MG TAB PO SCH (11:02)
[2020-10-01] MEDS ORDERED: POTASSIUM CHLORIDE ER 20 MEQ TAB.ER PO SCH (14:00)
--- NOTE | 2020-10-01 16:12 | CDI ---
Documentation Clarification Form Date: 10/01/2020 03:40:17 PM From: Taylor Lozada RN, CCDS Admit Date: 09/28/2020 02:20:00 PM Patient Name: Zach Thrasher Visit Number: [id number] Discharge Date: ATTENTION: The Clinical Documentation Specialists (CDI) and [facility] Coding Staff appreciate your assistance in clarifying documentation. Please respond to the clarification below the line at the bottom and electronically sign. The CDI & [facility] Coding staff will review the response and follow-up if needed. Please note: Queries are made part of the Legal Health Record. If you have any questions, please contact the author of this message via ITS. Dr. Arthur Fields 09/28 ID consult: concern for underlying osteomyelitis has been documented and in subsequent progress notes. After study please further specify if osteomyelitis in ruled in or out, location, and acuity if known. History/Risk Factors: memory impairment, dementia, ETOH, nicotine dependence Clinical Indicators: 69-year-old present on 09/28 with a wound on his left big toe and right toe with some foul-smelling drainage. 09/28 Labs: WBC 4.3, Lactic acid 2.3 09/28 Vital signs: 152/89 87 18 98.4 09/28 Bilateral foot X-Ray Results: Left foot x-ray did not show any osteomyelitis. On examination of the left big toe did have a deep wound with possible extension down to the interphalangeal joint with some instability, and foul-smelling. Right foot x-ray did show some osteomyelitis to the second toe. On exam the wound was not as deep with surrounding swelling, redness and minimal foul-smelling drainage. Treatment: Zosyn 3...375 mg IVPB Q 8 Hrs (09/28 Unasyn 3 gm IVPB Q 6 Hrs (09/29-10/01) Vancomycin 1,500 mg IVPB Once, then Q 12Hr (PTD) 09/28 Left big toe amputation at metatarsophalangeal joint. Right foot second toe amputation at metatarsophalangeal joint. Dressing change to site daily In your professional opinion, please specify acuity of the osteomyelitis: Right second toe osteomyelitis Acuity: Acute Chronic Subacute Unable to Determine Cause: Viral (specify organism if know): Bacterial (specify organism if know): Other (please specify): Unable to Determine Associated condition (if applicable): Major osseous defect (specify site) Other (please specify): (Last Revision: April 2017) Patient with left big toe wound, concern for underlying osteomyelitis, possible acute culture positive for Coagulase-negative Staphylococcus and anaerobes; also with right second toe wound and osteomyelitis, culture positive for Coagulase-negative staphylococcus and anaerobes. ALLYD
[2020-10-01] MEDS: HYDROmorphone 0.5 MG/0.5 ML SYRINGE IVP PRN ×2 (16:24→23:38)
--- NOTE | 2020-10-01 17:36 | PN ---
PROGRESS NOTE DATE OF SERVICE: 10/01/2020 This 69-year-old gentleman admitted with bilateral leg ulcers is being closely monitored at this time. Patient had surgery. The patient continues to be confused. Patient also had alcohol withdrawals and delirium tremens also. The patient has extremely poor social support. The cultures are pending at this time. The patient is started on broad-spectrum IV antibiotics. Dr. Fields has seen the patient and recommended to have long-term IV antibiotics concerns of osteomyelitis is also being raised. PAST MEDICAL HISTORY: Reviewed. REVIEW OF SYSTEMS: CARDIOVASCULAR SYSTEM: No angina. RESPIRATION: As mentioned earlier. GI: As mentioned earlier. NERVOUS SYSTEM: No numbness or weakness. CURRENT MEDICATIONS: Unasyn, Catapres, folic acid, Perforomist, heparin, Dilaudid, Ativan, p.r.n. medications. PHYSICAL EXAM: Patient is alert, oriented x1. Pulse 66, blood pressure 150/81, respiration 18, temperature 98.3, pulse ox 98% on room air. HEENT: Conjunctivae normal. NECK: No JVD. CARDIOVASCULAR: S1, S2 muffled. RESPIRATORY SYSTEM: Breath sounds diminished at the bases. Scattered rhonchi and crackles. ABDOMEN: Soft. LEGS: Bilateral leg cellulitis and edema after surgery. NERVOUS SYSTEM: Peripheral neuropathy. LABS: WBC 4.2, hemoglobin 13.2. Sodium 136. Other labs are noted. ASSESSMENT: 1. Bilateral leg gangrene and ulcerations with sepsis present on admission, rule out osteomyelitis. 2. Status post left big toe amputation at the metatarsophalangeal joint as well as right foot second toe amputation at the metatarsophalangeal joint for severe infection and infected wounds. 3. Hyponatremia. 4. Hypokalemia. 5. Change in mental status, acute metabolic encephalopathy, multifactorial possibly secondary to sepsis. 6. 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 7. Elevated plasma lactic acid. 8. Increased AST. 9. History of ETOH. 10.History of nicotine dependence. 11.Depression. 12.History of dementia and memory impairment. 13.Poor social support. 14.Gait dysfunction. 15.FULL CODE. RECOMMENDATIONS AND DISCUSSION: Recommend to continue current management, continue the symptomatic treatment. Broad- spectrum IV antibiotics. I would order bone scan. Otherwise, culture showed coagulase- negative Staph only. Closely follow with with Infectious Disease. Further recommendations to follow. MMODL / IJN: [id number] /
--- NOTE | 2020-10-01 23:40 | PN ---
PROGRESS NOTE DATE OF SERVICE: 10/01/2020 REASON FOR FOLLOWUP: Left big toe right second toe wound and concern for underlying osteomyelitis. INTERVAL HISTORY: The patient is currently afebrile. The patient is breathing comfortably. Denies having any chest pain or cough. No nausea. No vomiting. No abdominal pain or any worsening pain to the bilateral foot area. PHYSICAL EXAMINATION: Blood pressure 159/84 with a pulse of 71, temperature 97.9. He is 97% on room air. General description: The patient is an elderly male lying in bed in no distress. Respiratory system: Unlabored breathing. Clear to auscultation anteriorly. Heart S1, S2. Regular rate and rhythm. Abdomen soft, no tenderness. Bilateral foot wounds are currently dressed. No obvious drainage on the dressing. LABS: Hemoglobin 13.2, white count 4.9. BUN of 6, creatinine 0.57. Vancomycin trough is elevated and should be cut back. DIAGNOSTIC IMPRESSION AND PLAN: Patient with left big toe right second toe wound, concern for underlying osteomyelitis. The patient is currently on Unasyn and Vanco to continue while monitor clinical course closely. Continue supportive care. MMODL / IJN: [id number] /
[2020-10-02] MEDS: cloNIDine HCL 0.1 MG TAB PO PRN (04:36)
[2020-10-02] MEDS: AMPICILLIN-SULBACTAM 3 GM in SODIUM CHLORIDE 0.9% 100 ML IVPB SCH ×4 (05:30→23:39)
[2020-10-02 07:22] LABS: African American GFR (CKD) >90 (>60 ml/min/1.73 sqM); Non-African American GFR(CKD) >90 (>60 ml/min/1.73 sqM); Potassium 4.1 mmol/L (3.5-5.1)
[2020-10-02] MEDS: NICOTINE 14MG/24HR PATCH TRANSDERM SCH (07:37)
[2020-10-02] MEDS: VANCOMYCIN 1,500 MG in SODIUM CHLORIDE 0.9% 250 ML IVPB SCH ×2 (07:37→20:09)
[2020-10-02] MEDS: THIAMINE 100 MG TAB PO SCH ×2 (07:37→16:37)
[2020-10-02] MEDS: PANTOPRAZOLE 40 MG TABLET PO SCH (07:37)
[2020-10-02] MEDS: HEPARIN SODIUM,PORCINE 5,000 UNIT/ML 1 ML VIAL SQ SCH ×2 (07:37→20:09)
[2020-10-02] MEDS: MULTIVITAMINS, THERA 1 EACH TAB PO SCH (07:37)
[2020-10-02] MEDS: FOLIC ACID 1 MG TAB PO SCH (07:39)
[2020-10-02] MEDS: FORMOTEROL FUMARATE 20 MCG/2 ML NEBU INHALATION SCH ×2 (08:23→21:05)
--- NOTE | 2020-10-02 14:10 | NM ---
EXAMINATION TYPE: NM bone 3 phase DATE OF EXAM: 10/02/2020 COMPARISON: NONE HISTORY: Osteomyelitis Triple phase bone scintigraphy was performed following the injection of 26.0 mCi Tc 99m MDP. Immedia te images and 4.5 hours post injection images acquired. FINDINGS: Blood flow: There is increased radiotracer accumulation within the distal right foot. Along the media l aspect. Blood pool: Increased radiotracer accumulation along the distal right metatarsal region. Static images: Delayed images were obtained. Increased radiotracer accumulation in the distal first m etatarsal region. Some mild uptake is at the talus which could be degenerative in nature. There appears to be absence of radiotracer in the region of the 2nd-3rd right foot digit. This could be related to aggressive osteomyelitis. There is intense uptake in the region of the first metatarsophalangeal joint space or distal first me tatarsal left foot on 3 phases of bone scan. Osteomyelitis should be considered at this location IMPRESSION: 1. Increased radiotracer on blood flow, blood pool, static images within the distal first metatarsal region left foot can be compatible with osteomyelitis. 2. Absence of uptake within the region of the second and possibly third digit right foot can be relat ed to aggressive osteolysis. Intensity is diminished in relation to the left foot.
--- NOTE | 2020-10-02 14:39 | PN ---
PROGRESS NOTE DATE OF SERVICE: 10/02/2020 REASON FOR FOLLOWUP: Left big toe wound and right second toe osteomyelitis. INTERVAL HISTORY: The patient is currently afebrile. He is breathing comfortably. Denies having any chest pain, shortness of breath or cough. No abdominal pain or any worsening pain to the wound area. PHYSICAL EXAMINATION: Blood pressure 144/78 with a pulse of 64, temperature 97.8. He is 93% on room air. General description is an elderly male lying in bed in no distress. RESPIRATORY SYSTEM: Unlabored breathing, clear to auscultation anteriorly. HEART: S1, S2. Regular rate and rhythm. ABDOMEN: Soft, no tenderness. Right second toe amputation site looks clean. No significant swelling, redness and drainage. The left big toe amputation site with minimal swelling, slight warmth, no drainage. LABS: Creatinine 0.58. Culture has been positive for Coagulase negative staph and anaerobes. DIAGNOSTIC IMPRESSION AND PLAN: Patient with left big toe wound, concern for underlying osteomyelitis, possible acute culture positive for Coagulase-negative Staphylococcus and anaerobes; also with right second toe wound and osteomyelitis, culture positive for Coagulase-negative staphylococcus and anaerobes. The patient will finish therapy with a 2 week course of IV vancomycin, oral Flagyl. PICC line has been ordered. Continue supportive care. MMODL / IJN: [id number] /
[2020-10-02] MEDS ORDERED: LIDOCAINE 1% INJ 10MG/ML (20 ML MDV) SQ ONE (14:54)
--- NOTE | 2020-10-02 15:38 | IR ---
"EXAMINATION TYPE: IR cvc insert >=5 years DATE OF EXAM: 10/02/2020 COMPARISON: NONE CLINICAL HISTORY: Infection Needs long-term intravenous access for antibiotics. PROCEDURE: Hand hygiene obtained with soap and water and alcohol-based hand rub. After informed consent, the skin overlying the left cephalic vein was localized with ultrasound and n oted to be compressible and patent. An ultrasound image was obtained and submitted on the patient's chart. The overlying skin was prepped and draped and Lidocaine was used for local anesthesia. A ski n martin was made with a scalpel. Access was gained to the vein under ultrasound guidance with a 21 ga uge needle and a 0.018 inch wire was advanced. Access site was dilated with Peel-Away sheath and cat heter tailored to the appropriate length and advanced such that the distal tip is at the cavoatrial j unction. Spot image was obtained verifying placement. Catheter was fixed to the skin and a sterile dressing was placed following hemostasis. Catheter was aspirated and flushed with saline. Patient w as discharged in stable condition without complication.Maximal barrier technique is utilized. Ultras ound image is documented on the chart. Ultrasound used with sterile technique. Incidental note was made of low level internal within the basilic vein distal to the antecubital mino a, some local edema channels within the soft tissues. Fluoro time and fluoroscopic images submitted to document procedure: 0.5 minutes fluoroscopy time, 40 intraoperative images document the procedure IMPRESSION: STATUS POST ULTRASOUND AND FLUOROSCOPIC GUIDED PICC LINE PLACEMENT, READY FOR USE. THIS PROCEDURE WAS PERFORMED BY THE UNDERSIGNED. Incidental note of partial superficial venous thrombosis in the left basilic vein. A Yellow level critical message alert has been initiated for Vicente Nicole MD via the [employer] 36 0 | Critical Results System on 10/02/2020 3:35 PM. This message alert has been sent to Vicente Nicole MD via the preferences provided by the clinician for the receipt of Radiology Critical Findings. Mess age ID [id number]."
--- NOTE | 2020-10-02 16:55 | PN ---
PROGRESS NOTE This 69-year-old gentleman admitted with bilateral leg ulcers and possible osteomyelitis, underwent surgery. No chest pain. No palpitations. No fever. The patient has significant history of EtOH intake. The patient is also being worked up for possibly PT/OT evaluation, possible ECF rehab. PHYSICAL EXAMINATION: Alert and oriented x2. Pulse 64, blood pressure 144/70, respiration 16, temperature 97.8, pulse ox 98% on room air. HEENT: Conjunctivae normal. NECK: No JVD. CARDIOVASCULAR: S1, S2 muffled. RESPIRATIONS: Breath sounds diminished in the bases. A few scattered rhonchi. ABDOMEN: Soft. LEGS: Bilateral leg cellulitis, status post surgery. NERVOUS SYSTEM: No focal deficits. LABS: Hemoglobin 13.2, sodium 136. ASSESSMENT: 1. Bilateral leg gangrene ulceration, sepsis with possible osteomyelitis present on admission. 2. Status post left big toe amputation at the metatarsophalangeal joint as well as second toe amputation right foot at the metatarsophalangeal joint for severe infection, infected wounds and osteomyelitis. 3. Hyponatremia. 4. Hypokalemia. 5. Change in mental status, acute metabolic encephalopathy multifactorial, possibly secondary to sepsis. 6. Possible peripheral neuropathy related to alcohol. 7. Gait dysfunction. 8. Elevated plasma lactic acid. 9. Increased AST. 10.History EtOH. 11.History of nicotine dependence. 12.Depression. 13.History of dementia, memory impairment. 14.Poor social support. 15.FULL CODE. RECOMMENDATIONS AND DISCUSSION: I recommend to continue current medications, management and symptomatic treatment. Otherwise I would recommend to continue current medications. Continue the antibiotics. Cultures are showing multiple organisms, mostly coagulase-negative Staph and some anaerobic gram-positive cocci also. The patient is on Unasyn. Further recommendations to follow. MMODL / IJN: [id number] /
[2020-10-03] MEDS: AMPICILLIN-SULBACTAM 3 GM in SODIUM CHLORIDE 0.9% 100 ML IVPB SCH ×4 (05:36→23:57)
[2020-10-03] MEDS ORDERED: VANCOMYCIN TROUGH DUE 1 EACH MISC MISCELLANE ONE (07:00)
[2020-10-03] MEDS: THIAMINE 100 MG TAB PO SCH ×2 (08:16→17:27)
[2020-10-03] MEDS: HEPARIN SODIUM,PORCINE 5,000 UNIT/ML 1 ML VIAL SQ SCH ×2 (08:16→21:05)
[2020-10-03] MEDS: MULTIVITAMINS, THERA 1 EACH TAB PO SCH (08:16)
[2020-10-03] MEDS: PANTOPRAZOLE 40 MG TABLET PO SCH (08:16)
[2020-10-03] MEDS: VANCOMYCIN 1,500 MG in SODIUM CHLORIDE 0.9% 250 ML IVPB SCH (08:16)
[2020-10-03] MEDS: NICOTINE 14MG/24HR PATCH TRANSDERM SCH (08:16)
[2020-10-03] MEDS: FORMOTEROL FUMARATE 20 MCG/2 ML NEBU INHALATION SCH ×2 (08:25→20:14)
--- NOTE | 2020-10-03 09:39 | PN ---
PROGRESS NOTE This is a 69-year-old gentleman who had a right foot second toe and left foot big toe amputation. Vital signs stable. We have changed the dressing today and incision site is clean and healing. We will continue with IV antibiotics and local wound care. Will changed the dressing every 48 hours if the patient goes home. I would like to see him in my office next week for removal of stitches. MMAMELIA / BAILEYN: [id number] /
[2020-10-03] MEDS: FOLIC ACID 1 MG TAB PO SCH (12:56)
[2020-10-03] MEDS: cloNIDine HCL 0.1 MG TAB PO PRN (15:13)
[2020-10-03] MEDS: cloNIDine HCL 0.1 MG TAB PO SCH ×2 (16:49→21:05)
--- NOTE | 2020-10-03 17:41 | PN ---
PROGRESS NOTE DATE OF SERVICE: 10/03/2020 This 69-year-old gentleman admitted with possible osteomyelitis of both feet, had surgery. The patient recommended non-weight bearing status by Dr. Ruvalcaba. No chest pain. No palpitations. No fever. The patient continues to be slightly confused. PHYSICAL EXAMINATION: Pulse 76. Blood pressure 161/84, respirations 16, temperature 98 degrees, pulse ox 96% on room air. HEENT: Conjunctivae normal. NECK: No JVD. CARDIOVASCULAR system: S1, S2 muffled. RESPIRATORY: Breath sounds diminished in the bases. No rhonchi. No crackles. ABDOMEN: Soft, nontender. LEGS: Status post surgery. NERVOUS SYSTEM: Diffusely weak. LAB: WBC 4.2, hemoglobin 13.2. Sodium 136. ASSESSMENT: 1. Bilateral leg gangrene ulceration sepsis with possible osteomyelitis present on admission. 2. Status post left big toe amputation at the metatarsophalangeal joint as well as amputation right foot at the metatarsophalangeal joint of the second toe with severe infection sepsis and osteomyelitis present on admission. 3. Hyponatremia. 4. Hypokalemia. 5. Change in mental status, acute metabolic encephalopathy multifactorial. 6. Acute delirium tremens. 7. Possible peripheral neuropathy related to alcohol. 8. Gait dysfunction. 9. Elevated plasma lactic acid. 10.Increased AST. 11.History of nicotine dependence. 12.Depression. 13.History of dementia, memory impairment. 14.Poor social support. 15.FULL CODE. RECOMMENDATIONS AND DISCUSSION: Recommend to continue current medications, management and symptomatic treatment. Repeat labs. PT/OT evaluation, possible ECF rehab. Otherwise, the final cultures are pending at this time. The patient has multiple organisms grown from the culture. We will continue to monitor. Closely follow with Infectious Disease. Further recommendations to follow. MMODL / IJN: [id number] /
[2020-10-03] MEDS: VANCOMYCIN 1,750 MG in SODIUM CHLORIDE 0.9% 500 ML 500 ML IVPB SCH (19:37)
[2020-10-04] MEDS: AMPICILLIN-SULBACTAM 3 GM in SODIUM CHLORIDE 0.9% 100 ML IVPB SCH ×3 (05:20→17:34)
[2020-10-04] MEDS: cloNIDine HCL 0.1 MG TAB PO SCH ×3 (08:42→20:52)
[2020-10-04] MEDS: HEPARIN SODIUM,PORCINE 5,000 UNIT/ML 1 ML VIAL SQ SCH ×2 (08:42→20:51)
[2020-10-04] MEDS: THIAMINE 100 MG TAB PO SCH ×2 (08:42→17:34)
[2020-10-04] MEDS: PANTOPRAZOLE 40 MG TABLET PO SCH (08:42)
[2020-10-04] MEDS: MULTIVITAMINS, THERA 1 EACH TAB PO SCH (08:42)
[2020-10-04] MEDS: NICOTINE 14MG/24HR PATCH TRANSDERM SCH (08:43)
[2020-10-04] MEDS: VANCOMYCIN 1,750 MG in SODIUM CHLORIDE 0.9% 500 ML 500 ML IVPB SCH ×2 (08:43→20:01)
[2020-10-04] MEDS: FORMOTEROL FUMARATE 20 MCG/2 ML NEBU INHALATION SCH ×3 (08:55→20:17)
[2020-10-04 09:03] LABS: Basophils # (A) 0.03 X 10*3/uL (0.00-0.10); Basophils % (A) 0.5 %; Eosinophils # (A) 0.06 X 10*3/uL (0.04-0.35); HCT 35.8 % (39.6-50.0); HGB 12.4 g/dL (13.0-17.0); Lymphocytes # (A) 1.17 X 10*3/uL (0.90-5.00); Lymphocytes % (A) 19.2 %; MCH 31.6 pg (27.0-32.0); MCHC 34.6 g/dL (32.0-37.0); MCV 91.3 fL (80.0-97.0); Mean Platelet Volume 10.5 fL (9.5-12.2); Monocytes # (A) 0.62 X 10*3/uL (0.20-1.00); Monocytes % (A) 10.2 %; Neutrophils % (A) 68.9 %; Platelet Count 251 X 10*3/uL (140-440); RBC 3.92 X 10*6/uL (4.40-5.60); RDW 12.1 % (11.5-14.5); WBC 6.09 X 10*3/uL (4.50-10.00)
[2020-10-04 09:43] LABS: African American GFR (CKD) 119.7 (60.0-200.0); Anion Gap 8.3 mmol/L (4.00-12.00); BUN/Creat Ratio 13.33 Ratio (12.00-20.00); Calcium 8.6 mg/dL (8.7-10.3); Carbon Dioxide 23.7 mmol/L (21.6-31.8); Non-African American GFR(CKD) 103.3 (60.0-200.0); Potassium 3.9 mmol/L (3.5-5.5)
[2020-10-04] MEDS: FOLIC ACID 1 MG TAB PO SCH (11:40)
--- NOTE | 2020-10-04 17:11 | PN ---
PROGRESS NOTE DATE OF SERVICE: 10/04/2020 INTERVAL HISTORY: This is a 69-year-old gentleman who was admitted with bilateral leg gangrene, ulceration, possibly osteomyelitis also. The patient had surgery. The patient is being closely monitored. The culture showed multiple organisms. PT/OT evaluation for possible ECF rehab. No chest pain. No palpitations. The sensorium is improving. PHYSICAL EXAMINATION: VITAL SIGNS: Pulse 63, blood pressure 143/75, respirations 18, temperature 98, pulse ox 92% on room air. HEENT: Conjunctivae normal. Oral mucosa moist. NECK: No jugular venous distention. No carotid bruits. No lymph node enlargement. RESPIRATORY: Breath sounds diminished at the bases. No rhonchi, no crackles. HEART: S1 and S2, muffled. ABDOMEN: Soft, no tenderness. No masses palpable. EXTREMITIES: Bilateral foot surgery. LAB STUDIES: Hemoglobin 12.4. ASSESSMENT: 1. Bilateral leg gangrene, ulceration, sepsis with possible osteomyelitis present on admission. 2. Status post left big toe amputation at the metatarsophalangeal joint as well as amputation of the metatarsophalangeal joint of the second toe with severe infection on the right side with sepsis and osteomyelitis present on admission. 3. Hyponatremia. 4. Hypokalemia. 5. Change in mental status acute metabolic encephalopathy, multifactorial. 6. Acute delirium tremens. 7. 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 8. Gait dysfunction. 9. Elevated plasma lactic acid. 10.Increased AST. 11.History of nicotine dependence. 12.Depression. 13.History of dementia, memory impairment. 14.Poor social support. 15.FULL CODE. RECOMMENDATION AND DISCUSSION: Recommend to continue current medications, symptomatic treatment. Otherwise at this time PT, OT evaluation. Closely follow. Continue with antibiotics. Follow closely with Dr. Ruvalcaba. Guarded prognosis. Further recommendations to follow. MMODL / IJN: [id number] /
[2020-10-04] MEDS: metroNIDAZOLE 500 MG TAB PO SCH (22:11)
--- NOTE | 2020-10-04 23:24 | PN ---
PROGRESS NOTE DATE OF SERVICE: 10/04/2020 REASON FOR FOLLOWUP: Left big toe and right second toe wound osteomyelitis. INTERVAL HISTORY: The patient is currently afebrile. Patient is breathing comfortably. Denies any chest pain or cough. No nausea. No vomiting. No abdominal pain or any worsening pain to the bilateral foot wound area. PHYSICAL EXAMINATION: Blood pressure 132/88 with a pulse of 65, temperature 98. He is 96% on room air. General description is an elderly male lying in bed in no distress. Respiratory system is unlabored breathing, clear to auscultation anteriorly. Heart S1, S2. Regular rate and rhythm. Abdomen soft, no tenderness. LABS: Hemoglobin 12.4, white count of 6.9, BUN of 8, creatinine 0.6. DIAGNOSTIC IMPRESSION AND PLAN: Patient with left foot big toe and right second toe wound with concern for underlying osteomyelitis status post debridement. Cultures with mostly anaerobes and coagulase negative Staph. Vancomycin to continue. Unasyn switched to p.o. Flagyl. Both antibiotics to continue for 2 weeks to finish a course of therapy as there was evidence of significant cellulitis to the left big toe amputation site. Daughter at the bedside. Questions were answered. MMODL / IJN: [id number] /
[2020-10-05] MEDS ORDERED: VANCOMYCIN TROUGH DUE 1 EACH MISC MISCELLANE ONE (07:00)
[2020-10-05] MEDS: PANTOPRAZOLE 40 MG TABLET PO SCH (07:06)
[2020-10-05] MEDS: THIAMINE 100 MG TAB PO SCH ×2 (07:06→17:28)
[2020-10-05] MEDS: MULTIVITAMINS, THERA 1 EACH TAB PO SCH (07:06)
[2020-10-05] MEDS: HEPARIN SODIUM,PORCINE 5,000 UNIT/ML 1 ML VIAL SQ SCH ×3 (07:06→23:52)
[2020-10-05] MEDS: metroNIDAZOLE 500 MG TAB PO SCH ×3 (07:06→21:43)
[2020-10-05] MEDS: NICOTINE 14MG/24HR PATCH TRANSDERM SCH (07:07)
[2020-10-05] MEDS: VANCOMYCIN 1,750 MG in SODIUM CHLORIDE 0.9% 500 ML 500 ML IVPB SCH ×2 (07:09→19:19)
[2020-10-05] MEDS: cloNIDine HCL 0.1 MG TAB PO SCH ×3 (07:41→21:44)
[2020-10-05] MEDS: FORMOTEROL FUMARATE 20 MCG/2 ML NEBU INHALATION SCH ×2 (07:53→19:45)
[2020-10-05 09:00] LABS: Basophils # (A) 0.04 X 10*3/uL (0.00-0.10); Basophils % (A) 0.9 %; Eosinophils # (A) 0.07 X 10*3/uL (0.04-0.35); Eosinophils % (A) 1.5 %; HCT 36.9 % (39.6-50.0); HGB 12.6 g/dL (13.0-17.0); Lymphocytes % (A) 19.7 %; MCH 31.3 pg (27.0-32.0); MCHC 34.1 g/dL (32.0-37.0); MCV 91.8 fL (80.0-97.0); Mean Platelet Volume 10.3 fL (9.5-12.2); Monocytes # (A) 0.49 X 10*3/uL (0.20-1.00); Monocytes % (A) 10.7 %; Neutrophils # (A) 3.07 X 10*3/uL (1.80-7.70); Platelet Count 250 X 10*3/uL (140-440); RBC 4.02 X 10*6/uL (4.40-5.60); WBC 4.58 X 10*3/uL (4.50-10.00)
[2020-10-05 09:33] LABS: African American GFR (CKD) 119.7 (60.0-200.0); Anion Gap 7.5 mmol/L (4.00-12.00); BUN/Creat Ratio 13.33 Ratio (12.00-20.00); Calcium 8.8 mg/dL (8.7-10.3); Carbon Dioxide 24.5 mmol/L (21.6-31.8); Non-African American GFR(CKD) 103.3 (60.0-200.0); Potassium 3.8 mmol/L (3.5-5.5)
[2020-10-05] MEDS: FOLIC ACID 1 MG TAB PO SCH (10:41)
--- NOTE | 2020-10-05 13:16 | P.DS ---
Providers Date of admission: 09/28/20 14:20 Expected date of discharge: 10/05/20 Attending physician: Vicente Nicole MD Consults: 09/28/20 14:21 Consult Physician Urgent Consulting Provider: Arthur Fields Consult Reason/Comments: Bilateral toe infections, evaluate for osteomyelitis Do you want consulting provider notified?: Yes 09/28/20 16:56 Consult Physician Routine Consulting Provider: Yahir Ruvalcaba Consult Reason/Comments: ulcers foot Do you want consulting provider notified?: Yes Primary care physician: Stated None Hospital Course: Final diagnosis Bilateral leg gangrene, ulceration, sepsis with possible osteomyelitis, present on admission 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 as well as amputation of the metatarsophalangeal joint of the second toe with severe infection on the right side with sepsis and osteomyelitis present on admission Hyponatremia Hypokalemia Change in mental status, acute metabolic encephalopathy, multifactorial Acute delirium tremens 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 Patient will follow-up with Dr. Nolasco in the outpatient setting upon discharge. Patient is to continue with IV antibiotics in the form of IV vancomycin 1.5 g twice daily for the next 2 weeks. Patient will also continue on oral antibiotics in the form of Flagyl 3 times daily and will be following up with infectious disease in the outpatient setting along with vascular surgery. Total time taken is greater than 35 minutes. Hospital course This is a 69-year-old male who was recently admitted with bilateral leg gangrene, ulceration, possibly osteomyelitis and was being closely monitored. Patient was seen and evaluated by vascular surgery Dr. Ruvalcaba and underwent right foot second toe and left foot big toe amputation and will be following up with him in the outpatient setting. Patient is maintained on IV antibiotics in the form of vancomycin and will continue along with oral Flagyl as instructed by infectious disease. Patient will need to follow-up in the outpatient setting at the wound care center. Patient continues to be weak and was evaluated by PT/OT recommending subacute rehab for continued strength and mobility and functioning with ADLs. Patient will be going to [facility] today. Currently no reports of chest pain, shortness of breath, or palpitations. Patient is afebrile. No reports of nausea or vomiting and patient is tolerating diet. Patient will be going to [facility] today. On exam vital signs are stable. Cardio S1, S2 are muffled. Respiratory system shows diminished breath sounds at the bases with no wheezing or rhonchi noted. Abdomen is soft and nontender. Nervous system shows diffuse weakness. Please refer to medication reconciliation sheet for a list of medications. Patient Condition at Discharge: Stable Plan - Discharge Summary Discharge Rx Participant: No New Discharge Prescriptions: New metroNIDAZOLE [Flagyl] 500 mg PO Q8HR #42 tab Vancomycin HCl in 5 % Dextrose [Vancomycin 1 Gram/250 ml-D5w] 1.5 gm IV BID #28 plast..bag cloNIDine HCL [Catapres] 0.1 mg PO TID tab cloNIDine HCL [Catapres] 0.1 mg PO Q4HR PRN tab PRN Reason: Hypertension Folic Acid 1 mg PO DAILY@1200 tab Nicotine 14Mg/24Hr Patch [Habitrol] 1 patch TRANSDERM DAILY patch Multivitamins, Thera [Multivitamin (formulary)] 1 each PO DAILY tab Formoterol Fumarate [Perforomist] 20 mcg INHALATION RT-BID nebu Pantoprazole [Protonix] 40 mg PO AC-BRKFST tablet. Temazepam [Restoril] 15 mg PO HS PRN #3 cap PRN Reason: Insomnia Thiamine [Vitamin B-1] 100 mg PO BID-W/MEALS tab Discharge Medication List Vancomycin HCl in 5 % Dextrose [Vancomycin 1 Gram/250 ml-D5w] 1.5 gm IV BID #28 plast..bag 10/02/20 [Rx] metroNIDAZOLE [Flagyl] 500 mg PO Q8HR #42 tab 10/02/20 [Rx] Folic Acid 1 mg PO DAILY@1200 tab 10/05/20 [Rx] Formoterol Fumarate [Perforomist] 20 mcg INHALATION RT-BID nebu 10/05/20 [Rx] Multivitamins, Thera [Multivitamin (formulary)] 1 each PO DAILY tab 10/05/20 [Rx] Nicotine 14Mg/24Hr Patch [Habitrol] 1 patch TRANSDERM DAILY patch 10/05/20 [Rx] Pantoprazole [Protonix] 40 mg PO AC-BRKFST tablet. 10/05/20 [Rx] Temazepam [Restoril] 15 mg PO HS PRN #3 cap 10/05/20 [Rx] Thiamine [Vitamin B-1] 100 mg PO BID-W/MEALS tab 10/05/20 [Rx] cloNIDine HCL [Catapres] 0.1 mg PO Q4HR PRN tab 10/05/20 [Rx] cloNIDine HCL [Catapres] 0.1 mg PO TID tab 10/05/20 [Rx] Follow up Appointment(s)/Referral(s): Maria A Nolasco MD [STAFF PHYSICIAN] - 1 Week Yahir Ruvalcaba MD [STAFF PHYSICIAN] - 1 Week Ambulatory/Diagnostic Orders: Complete Blood Count w/diff [LAB.AMB] Time Frame: 2 Days, Location: None Selected Comprehensive Metabolic Panel [LAB.AMB] Time Frame: 2 Days, Location: None Selected Activity/Diet/Wound Care/Special Instructions: [facility] [place] [facility] as tolerated Continue current regular diet Continue with IV antibiotics per infectious disease Follow-up with wound care center with Dr. Ruavlcaba outpatient Follow-up primary care provider upon discharge Repeat labs in 2-3 days to monitor kidney functions Per Dr. Ruvalcaba, non-weight bearing. Dry dressing change every other day. Discharge Disposition: TRANSFER TO SNF/ECF
[2020-10-05 13:18] VITALS: BMI 27.2
--- NOTE | 2020-10-05 15:46 | P.PN ---
Subjective Progress Note Date: 10/05/20 This is a 69-year-old male who was recently admitted with bilateral leg gangrene, ulceration, possibly osteomyelitis and is being closely monitored. Patient underwent amputation of large great toe of the left foot along with second toe of the right foot with Dr. Ruvalcaba and is being closely monitored. Surgical dressings appear dry and intact at this time. Lower extremities elevated while at rest. Patient did receive a PICC line for outpatient IV antibiotic therapy and infectious disease is following. Patient is maintained on vancomycin and oral Flagyl. Per radiology report a finding of a partial superficial venous thrombosis in the left basilic vein was noted and working on having a PICC line placed to the right upper extremity. Patient will continue on heparin subcutaneous injections every 8 hours. PT/INR ordered. Will continue to monitor vital signs and labs closely. Patient denies any chest pain, shortness of breath, or palpitations. Patient is afebrile. Review of systems: Constitutional: No reports of fatigue, fever, or chills Cardiovascular: No reports of chest pain or palpitations Respiratory: No reports of shortness of breath or cough GI: No reports of nausea, vomiting, or diarrhea : No reports of dysuria or retention Neurovascular: Reports Generalized weakness All medications have been reviewed Active Medications Clonidine (Clonidine Hcl 0.1 Mg Tab) 0.1 mg PO Q4HR PRN PRN Reason: Hypertension Last Admin: 10/03/20 15:13 Dose: 0.1 mg Documented by: Clonidine (Clonidine Hcl 0.1 Mg Tab) 0.1 mg PO TID FOR[facility]LY [facility], [facility]1983 Last Admin: 10/05/20 07:41 Dose: 0.1 mg Documented by: Folic Acid (Folic Acid 1 Mg Tab) 1 mg PO DAILY@1200 FOR[facility]LY [facility], [facility]1983 Last Admin: 10/05/20 10:41 Dose: 1 mg Documented by: Formoterol Fumarate (Formoterol Fumarate 20 Mcg/2 Ml Nebu) 20 mcg INHALATION RT-BID FOR[facility]LY [facility], [facility]1983 Last Admin: 10/05/20 07:53 Dose: 20 mcg Documented by: Heparin Sodium (Porcine) (Heparin Sodium,Porcine 5,000 Unit/Ml 1 Ml Vial) 5,000 unit SQ Q8HR [facility], [facility]1983 Hydromorphone HCl (Hydromorphone 0.5 Mg/0.5 Ml Syringe) 0.5 mg IVP Q6HR PRN PRN Reason: Severe Pain Last Admin: 10/01/20 23:38 Dose: 0.5 mg Documented by: Vancomycin HCl 1,750 mg/ (Sodium Chloride) 500 mls @ 166.667 mls/hr IVPB Q12H [facility], [facility]1983 Last Admin: 10/05/20 07:09 Dose: 166.667 mls/hr Documented by: Lorazepam (Lorazepam 2 Mg/Ml Inj) 1 mg IV Q2HR PRN PRN Reason: CIWA 8 or 9 Last Admin: 09/30/20 08:02 Dose: 1 mg Documented by: Lorazepam (Lorazepam 2 Mg/Ml Inj) 1 mg IV Q1HR PRN PRN Reason: CIWA 10 to 15 Metronidazole (Metronidazole 500 Mg Tab) 500 mg PO TID [facility], [facility] Last Admin: 10/05/20 07:06 Dose: 500 mg Documented by: Miscellaneous Information (Potassium Replacement Protocol 1 Each Misc) 1 each MISCELLANE DAILY PRN; Protocol PRN Reason: Per Protocol Miscellaneous Information (Magnesium Replacement Protocol 1 Each Misc) 1 each MISCELLANE DAILY PRN; Protocol PRN Reason: Per Protocol Multivitamins (Multivitamins, Thera 1 Each Tab) 1 each PO DAILY [facility], [facility] Last Admin: 10/05/20 07:06 Dose: 1 each Documented by: Naloxone HCl (Naloxone 0.4 Mg/Ml 1 Ml Vial) 0.2 mg IV Q2M PRN PRN Reason: Opioid Reversal Nicotine (Nicotine 14mg/24hr Patch) 1 patch TRANSDERM DAILY [facility], [facility] Last Admin: 10/05/20 07:07 Dose: 1 patch Documented by: Pantoprazole Sodium (Pantoprazole 40 Mg Tablet) 40 mg PO AC-BRKFST [facility], [facility]1983 Last Admin: 10/05/20 07:06 Dose: 40 mg Documented by: Sodium Chloride (Sodium Chloride 0.9% Flush 10 Ml Syringe) 10 ml IV Q4HR PRN PRN Reason: PICC Line Sodium Chloride (Sodium Chloride 0.9% Flush 10 Ml Syringe) 10 ml IV WEEKLY [facility], [facility] Sodium Chloride (Sodium Chloride 0.9% Flush 10 Ml Syringe) 20 ml IV Q4HR PRN PRN Reason: PICC Line Temazepam (Temazepam 15 Mg Cap) 15 mg PO HS PRN PRN Reason: Insomnia Thiamine HCl (Thiamine 100 Mg Tab) 100 mg PO BID-W/MEALS [facility], [facility] Last Admin: 10/05/20 07:06 Dose: 100 mg Documented by: Objective - Vital Signs Vital signs: Vital Signs Temp 98.2 F 10/05/20 13:00 Pulse 60 10/05/20 13:00 Resp 16 10/05/20 08:07 BP 149/78 10/05/20 13:00 Pulse Ox 95 10/05/20 13:00 Intake & Output 10/04/20 10/05/20 10/05/20 18:59 06:59 18:59 Weight 86.183 kg Other: Voiding Method Diaper Diaper Diaper Incontinent Incontinent Incontinent # Voids 2 2 - Exam Gen: This is a 69-year-old male awake, alert and oriented 3, and developed, well-nourished. Temp is 98.2F, pulse is 60, respirations are 16, blood pressure is 149/78, oxygen saturation is 95% on room air. HEENT: Head is atraumatic, normocephalic. Pupils equal, round. Sclerae is anicteric. NECK: Supple. No JVD. No lymphadenopathy. No thyromegaly. LUNGS: Breath sounds diminished at the bases with no wheezing or rhonchi noted. No intercostal retractions. HEART: S1, S2 are muffled ABDOMEN: Soft. Bowel sounds are present. No masses. No tenderness. EXTREMITIES: No pedal edema. No calf tenderness. biLateral foot surgery shaw rgical dressings noted NEUROLOGICAL: Patient is awake, alert and oriented x3. Cranial nerves 2 through 12 are grossly intact. - Labs CBC & Chem 7: 10/05/20 06:16 10/05/20 06:16 Labs: Abnormal Lab Results - Last 24 Hours (Table) 10/05/20 10/05/20 Range/Units 06:16 06:16 RBC 4.02 L (4.40-5.60) X 10*6/uL Hgb 12.6 L (13.0-17.0) g/dL Hct 36.9 L (39.6-50.0) % BUN 8.0 L (9.0-27.0) mg/dL Glucose 127 H (70-110) mg/dL Microbiology - Last 24 Hours (Table) 09/29/20 15:06 Anaerobic Culture - Final Toe - Right Second Anaerobic Gram Positive Cocci Anaerobic Gram Positive Cocci#2 09/29/20 15:06 Anaerobic Culture - Preliminary Toe - Left First Anaerobic Gram Positive Cocci 09/28/20 12:45 Blood Culture - Final Blood No Growth after 144 hours 09/28/20 12:55 Blood Culture - Final Blood No Growth after 144 hours Assessment and Plan Assessment: Bilateral leg gangrene, ulceration, sepsis with possible osteomyelitis, present on admission Partial superficial venous thrombosis noted by radiology during PICC line placement of the left basilic vein 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 as well as amputation of the metatarsophalangeal joint of the second toe with severe infection on the right side with sepsis and osteomyelitis present on admission Hyponatremia Hypokalemia Change in mental status, acute metabolic encephalopathy, multifactorial Acute delirium tremens 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 Incidentally a partial superficial venous thrombosis in the left basilic vein was noted by radiology during PICC line placement. Cath team notified of the possibility of switching to the right arm for PICC line although unable to do today. Patient is maintained on IV antibiotic therapy and infectious disease following. Patient will be scheduled for PICC line placement of the right upper extremity for continued IV antibiotic therapy in the outpatient setting. Patient to continue with heparin 5000 units subcutaneous 3 times daily. Social work following this patient was scheduled to be discharged to [facility] today. Will continue to monitor closely with possible discharge tomorrow. Due to multiple complex medical issues, prognosis is guarded.
--- NOTE | 2020-10-05 15:51 | US ---
EXAMINATION TYPE: US venous doppler duplex UE LT DATE OF EXAM: 10/05/2020 COMPARISON: NONE CLINICAL HISTORY: 69-year-old male with DVT Left arm swelling with PICC line per patient. Osteomyelit is. SIDE PERFORMED: Left arm FINDINGS: ELECTRICIAN CONTROL EQUIPMENT NOTES: Adhesive dressing for PICC and second IV interferes with scanning of left Ulnar Ve ins and lower portion of left Basilic vein. Left Arm: One of two Brachial Veins to not compressed. Internal echoes are noted in this vein and no color flow is seen at upper arm level suggesting DVT here. Left Basilic vein not fully compressible w ith internal echoes seen indicating Superficial Vein Thrombosis. Tech findings reported to patient's RN, Ayleen. Left arm PICC line is noted in Left Cephalic Vein and in Left Subclavian Veins, both of which are pat ent. IMPRESSION: 1. Exam positive for DVT involving one of two upper brachial veins. 2. In addition, exam positive for SVT of the basilic vein. 3. PICC line visualized within the patent cephalic and subclavian veins.
[2020-10-05 16:22] LABS: Prothrombin Time 10.7 sec (9.0-12.0)
--- NOTE | 2020-10-05 18:52 | PN ---
PROGRESS NOTE DATE OF SERVICE: 10/05/2020 REASON FOR FOLLOWUP: Left big toe and right second toe wound with concern for cellulitis and osteomyelitis. INTERVAL HISTORY: The patient is currently afebrile. The patient is breathing comfortably. Denies having any chest pain, shortness, cough. No abdominal pain. No pain to the bilateral foot wound area. PHYSICAL EXAMINATION: Blood pressure 149/78 with a pulse of 62, temperature 98.2. He is 95% on room air. General description is an elderly male lying in bed in no distress. Respiratory system: Unlabored breathing, clear to auscultation anteriorly. Heart S1, S2. Regular rate and rhythm. Abdomen is soft, no tenderness. Bilateral foot wounds are currently dressed. No obvious drainage on the dressing. LABS: Hemoglobin is 12.2, white count 4.5, BUN of 8, creatinine 0.6. DIAGNOSTIC IMPRESSION AND PLAN: Patient with left big toe and right second toe wound with concern for underlying osteomyelitis, acute, status post amputation. Did have inflammatory changes at the left big toe amputation site. Have recommended vancomycin for 2 weeks along with oral Flagyl. There was evidence of SVT on the PICC line, which should be switched over to the other site. Discussed with a surgeon. Continue supportive care. MMODL / IJN: [id number] / [id number]
[2020-10-06] MEDS: FORMOTEROL FUMARATE 20 MCG/2 ML NEBU INHALATION SCH (08:33)
[2020-10-06] MEDS: metroNIDAZOLE 500 MG TAB PO SCH (09:14)
[2020-10-06] MEDS: NICOTINE 14MG/24HR PATCH TRANSDERM SCH (09:14)
[2020-10-06] MEDS: MULTIVITAMINS, THERA 1 EACH TAB PO SCH (09:14)
[2020-10-06] MEDS: PANTOPRAZOLE 40 MG TABLET PO SCH (09:14)
[2020-10-06] MEDS: cloNIDine HCL 0.1 MG TAB PO SCH (09:14)
[2020-10-06] MEDS: HEPARIN SODIUM,PORCINE 5,000 UNIT/ML 1 ML VIAL SQ SCH (09:15)
[2020-10-06] MEDS: THIAMINE 100 MG TAB PO SCH (09:15)
[2020-10-06] MEDS: FOLIC ACID 1 MG TAB PO SCH (09:15)
[2020-10-06] MEDS: VANCOMYCIN 1,750 MG in SODIUM CHLORIDE 0.9% 500 ML 500 ML IVPB SCH (09:15)
[2020-10-06] MEDS ORDERED: LIDOCAINE 1% INJ 10MG/ML (20 ML MDV) SQ ONE (09:58)
[2020-10-06 10:23] LABS: Basophils # (A) 0.04 X 10*3/uL (0.00-0.10); Basophils % (A) 0.8 %; Eosinophils # (A) 0.06 X 10*3/uL (0.04-0.35); Eosinophils % (A) 1.2 %; HCT 37.6 % (39.6-50.0); HGB 12.9 g/dL (13.0-17.0); Lymphocytes # (A) 0.91 X 10*3/uL (0.90-5.00); Lymphocytes % (A) 18.9 %; MCH 31.6 pg (27.0-32.0); MCHC 34.3 g/dL (32.0-37.0); MCV 92.2 fL (80.0-97.0); Mean Platelet Volume 10.3 fL (9.5-12.2); Monocytes # (A) 0.49 X 10*3/uL (0.20-1.00); Monocytes % (A) 10.2 %; Neutrophils # (A) 3.31 X 10*3/uL (1.80-7.70); Neutrophils % (A) 68.7 %; Platelet Count 267 X 10*3/uL (140-440); RBC 4.08 X 10*6/uL (4.40-5.60); RDW 12.1 % (11.5-14.5); WBC 4.82 X 10*3/uL (4.50-10.00)
--- NOTE | 2020-10-06 10:38 | IR ---
PICC LINE PLACEMENT: HISTORY: Infection requiring long-term antibiotic therapy PROCEDURE: Ultrasound and fluoroscopic guidance of PICC line placement. COMPLICATIONS: None ANESTHESIA: 1. 1% Lidocaine locally. FINDINGS/TECHNIQUE: The procedure was explained to the patient. The risks, complications, benefits and alternatives were discussed and any questions were answered. Informed consent was obtained. The patient was placed supine on the fluoroscopic table and prepped and draped in the usual sterile fash ion. Utilizing a 21 gauge needle and sonographic and fluoroscopic guidance, access in the right bas ilic vein was achieved and there is placement of a 0.018 guidewire. The vein is patent. A 4-F sheat h was placed over the guidewire. The guidewire and dilator were removed and a 4-F. PICC line was cris atilio through the sheath with the tip at the level of the SVC. The sheath was removed, the catheter wa s flushed and sutured into position. The patient was stable throughout the procedure and remained st able upon discharge from the Department of Radiology. The vein puncture was patent under ultrasound. A calhoun scale image was obtained to document patency of the vein punctured. All elements of the maximal barrier technique were utilized. FLUOROSCOPY TIME: 1.1 minute and one images submitted IMPRESSION: Successful PICC line placement under ultrasound and fluoroscopic guidance.
[2020-10-06 11:04] LABS: African American GFR (CKD) 119.7 (60.0-200.0); Anion Gap 10.4 mmol/L (4.00-12.00); BUN/Creat Ratio 16.67 Ratio (12.00-20.00); Carbon Dioxide 22.6 mmol/L (21.6-31.8); Non-African American GFR(CKD) 103.3 (60.0-200.0); Potassium 3.9 mmol/L (3.5-5.5)
[2020-10-06 12:28] VITALS: PULSE 67; RESP 15; TEMP 97.9
[2020-10-06 13:07] VITALS: BP 172/83
--- NOTE | 2020-10-06 13:27 | P.DS ---
Providers Date of admission: 09/28/20 14:20 Expected date of discharge: 10/06/20 Attending physician: Vicente Nicole MD Consults: 09/28/20 14:21 Consult Physician Urgent Consulting Provider: Arthur Fields Consult Reason/Comments: Bilateral toe infections, evaluate for osteomyelitis Do you want consulting provider notified?: Yes 09/28/20 16:56 Consult Physician Routine Consulting Provider: Yahir Ruvalcaba Consult Reason/Comments: ulcers foot Do you want consulting provider notified?: Yes Primary care physician: Stated None Hospital Course: Final diagnosis Bilateral leg gangrene, ulceration, sepsis with possible osteomyelitis, present on admission Partial superficial venous thrombosis noted by radiology during PICC line placement of the left basilic vein 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 as well as amputation of the metatarsophalangeal joint of the second toe with severe infection on the right side with sepsis and osteomyelitis present on admission Hyponatremia Hypokalemia Change in mental status, acute metabolic encephalopathy, multifactorial Acute delirium tremens 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 Patient will follow-up with Dr. Nolasco in the outpatient setting upon discharge. Patient is to continue with IV antibiotics in the form of IV vancomycin 1.5 g twice daily for the next 2 weeks. Patient will also continue on oral antibiotics in the form of Flagyl 3 times daily and will be following up with infectious disease in the outpatient setting along with vascular surgery. Patient will continue with heparin 5000 units subcutaneous every 8 hours for the next 3 weeks and then may discontinue. Total time taken is greater than 35 minutes. Hospital course This is a 69-year-old male who was recently admitted with bilateral leg gangrene, ulceration, possibly osteomyelitis and was being closely monitored. Patient was seen and evaluated by vascular surgery Dr. Ruvalcaba and underwent right foot second toe and left foot big toe amputation and will be following up with him in the outpatient setting. Patient is maintained on IV antibiotics in the form of vancomycin and will continue along with oral Flagyl as instructed by infectious disease. Patient will need to follow-up in the outpatient setting at the wound care center. Patient continues to be weak and was evaluated by PT/OT recommending subacute rehab for continued strength and mobility and functioning with ADLs. Patient initially had a PICC line placed in the left extremity although there was a partial superficial venous thrombosis noted by radiology in the left basilic vein and PICC line was placed in the right upper extremity. Patient will continue on heparin 5000 units subcutaneous every 8 hours for the next 3 weeks and then may discontinue. Patient will be going to [facility] today. Currently no reports of chest pain, shortness of breath, or palpitations. Patient is afebrile. No reports of nausea or vomiting and patient is tolerating diet. Patient will be going to [facility] today. On exam vital signs are stable. Cardio S1, S2 are muffled. Respiratory system shows diminished breath sounds at the bases with no wheezing or rhonchi noted. Abdomen is soft and nontender. Nervous system shows diffuse weakness. Please refer to medication reconciliation sheet for a list of medications. Patient Condition at Discharge: Stable Plan - Discharge Summary Discharge Rx Participant: No New Discharge Prescriptions: New metroNIDAZOLE [Flagyl] 500 mg PO Q8HR #42 tab Vancomycin HCl in 5 % Dextrose [Vancomycin 1 Gram/250 ml-D5w] 1.5 gm IV BID #28 plast..bag cloNIDine HCL [Catapres] 0.1 mg PO TID tab cloNIDine HCL [Catapres] 0.1 mg PO Q4HR PRN tab PRN Reason: Hypertension Folic Acid 1 mg PO DAILY@1200 tab Nicotine 14Mg/24Hr Patch [Habitrol] 1 patch TRANSDERM DAILY patch Multivitamins, Thera [Multivitamin (formulary)] 1 each PO DAILY tab Formoterol Fumarate [Perforomist] 20 mcg INHALATION RT-BID nebu Pantoprazole [Protonix] 40 mg PO AC-BRKFST tablet. Temazepam [Restoril] 15 mg PO HS PRN #3 cap PRN Reason: Insomnia Thiamine [Vitamin B-1] 100 mg PO BID-W/MEALS tab Heparin Sodium,Porcine [Heparin Sodium] 5,000 unit SQ Q12HR 21 Days #42 vial Discharge Medication List Vancomycin HCl in 5 % Dextrose [Vancomycin 1 Gram/250 ml-D5w] 1.5 gm IV BID #28 plast..bag 10/02/20 [Rx] metroNIDAZOLE [Flagyl] 500 mg PO Q8HR #42 tab 10/02/20 [Rx] Folic Acid 1 mg PO DAILY@1200 tab 10/05/20 [Rx] Formoterol Fumarate [Perforomist] 20 mcg INHALATION RT-BID nebu 10/05/20 [Rx] Heparin Sodium,Porcine [Heparin Sodium] 5,000 unit SQ Q12HR 21 Days #42 vial 10/05/20 [Rx] Multivitamins, Thera [Multivitamin (formulary)] 1 each PO DAILY tab 10/05/20 [Rx] Nicotine 14Mg/24Hr Patch [Habitrol] 1 patch TRANSDERM DAILY patch 10/05/20 [Rx] Pantoprazole [Protonix] 40 mg PO AC-BRKFST tablet. 10/05/20 [Rx] Temazepam [Restoril] 15 mg PO HS PRN #3 cap 10/05/20 [Rx] Thiamine [Vitamin B-1] 100 mg PO BID-W/MEALS tab 10/05/20 [Rx] cloNIDine HCL [Catapres] 0.1 mg PO Q4HR PRN tab 10/05/20 [Rx] cloNIDine HCL [Catapres] 0.1 mg PO TID tab 10/05/20 [Rx] Follow up Appointment(s)/Referral(s): Maria A Nolasco MD [STAFF PHYSICIAN] - 1 Week Yahir Ruvalcaba MD [STAFF PHYSICIAN] - 1 Week Ambulatory/Diagnostic Orders: Complete Blood Count w/diff [LAB.AMB] Time Frame: 2 Days, Location: None Selected Comprehensive Metabolic Panel [LAB.AMB] Time Frame: 2 Days, Location: None Selected Activity/Diet/Wound Care/Special Instructions: Patient is going to [facility] Activity as tolerated Continue current regular diet Continue with heparin subcutaneous 5000 units 3 times daily for the next 3 weeks and then may discontinue Continue with IV antibiotics per infectious disease Follow-up with wound care center with Dr. Ruvalcaba outpatient Follow-up primary care provider upon discharge Repeat labs in 2-3 days to monitor kidney functions Per Dr. Ruvalcaba, non-weight bearing. Dry dressing change every other day. f/u with Dr. Ruvalcaba for removal of stitches in office Discharge Disposition: TRANSFER TO SNF/F
--- NOTE | 2020-10-09 15:08 | P.PN ---
Progress Note - Text Progress Note Date: 10/06/20 REASON FOR FOLLOWUP: Left big toe and right second toe wound with concern for cellulitis and oste omyelitis. INTERVAL HISTORY: The patient remains to be afebrile. The patient is breathing comfortably. The patient denies chest pain, shortness, cough. No abdominal pain. No pain to the bilateral foot wound area. PHYSICAL EXAMINATION: Blood pressure 140/70 with a pulse of 62, temperature 98.2. He is 95% on room air. General description is an elderly male lying in bed in no distress. Respiratory system: Unlabored breathing, clear to auscultation anteriorly. Heart S1, S2. Regular rate and rhythm. Abdomen is soft, no tenderness. Bilateral foot wounds are currently dressed. No obvious drainage on the dressing. LABS: Reviewed DIAGNOSTIC IMPRESSION AND PLAN: Patient with left big toe and right second toe wound with concern for underlying osteomyelitis, acute, status post amputation. Did have inflammatory changes at the left big toe amputation site. The patient will continue with vancomycin for 2 weeks along with oral Flagyl. And close outpatient follow-up.
== END 2020-10-06 15:00 | DRG 853 ==
LOC: EC 12:07 → 5NMEDONC 14:20
PROVIDERS: ADMIT Internal Medicine; ATTEND Internal Medicine
PROC: 0Y6R0Z0 Detachment at Right 2nd Toe, Complete, Open Approach (ICD-10-PCS; principal; 2020-09-29 08:15)
PROC: 0Y6Q0Z0 Detachment at Left 1st Toe, Complete, Open Approach (ICD-10-PCS; principal; 2020-09-29 08:15)
PROC: 02HV33Z Insertion of Infusion Device into Superior Vena Cava, Percutaneous Approach (ICD-10-PCS; 2020-10-02)
PROC: 02HV33Z Insertion of Infusion Device into Superior Vena Cava, Percutaneous Approach (ICD-10-PCS; 2020-10-06)
DX: A41.1 Sepsis due to other specified staphylococcus (principal); G93.41 Metabolic encephalopathy; M86.172 Other acute osteomyelitis, left ankle and foot; M86.171 Other acute osteomyelitis, right ankle and foot; E87.1 Hypo-osmolality and hyponatremia; F10.231 Alcohol dependence with withdrawal delirium; I82.612 Acute embolism and thrombosis of superficial veins of left upper extremity; I70.263 Atherosclerosis of native arteries of extremities with gangrene, bilateral legs; L97.929 Non-pressure chronic ulcer of unspecified part of left lower leg with unspecified severity; L97.919 Non-pressure chronic ulcer of unspecified part of right lower leg with unspecified severity; E87.6 Hypokalemia; F03.90 Unspecified dementia, unspecified severity, without behavioral disturbance, psychotic disturbance, mood disturbance, and anxiety; F17.210 Nicotine dependence, cigarettes, uncomplicated; F32.9 Major depressive disorder, single episode, unspecified; G62.1 Alcoholic polyneuropathy; H91.93 Unspecified hearing loss, bilateral; L97.529 Non-pressure chronic ulcer of other part of left foot with unspecified severity; L97.519 Non-pressure chronic ulcer of other part of right foot with unspecified severity; Z20.822 Contact with and (suspected) exposure to COVID-19; Z63.8 Other specified problems related to primary support group; Z79.2 Long term (current) use of antibiotics; Z82.49 Family history of ischemic heart disease and other diseases of the circulatory system; I45.10 Unspecified right bundle-branch block; Z60.2 Problems related to living alone; R15.9 Full incontinence of feces; R26.9 Unspecified abnormalities of gait and mobility
CPT/HCPCS: 36415; 36573; 71046; 78315; 80048; 80053; 80202; 80320; 81003; 82565; 83605; 83735; 84132; 85025; 85610; 85730; 87040; 87070; 87075; 87205; 87635; 93005; 94640; 96365; 96375; 99285

== ENCOUNTER 2025-02-17 23:54 | Emergency (ER) | payer MEDICARE, OTHER ==
[2025-02-18 00:06] VITALS: TEMP 97.6
--- NOTE | 2025-02-18 01:06 | CT ---
EXAM: CT Head Without Intravenous Contrast CLINICAL HISTORY: ITS.REASON CT Reason: fall injury TECHNIQUE: Axial computed tomography images of the head/brain without intravenous contrast. CTDI is 45.3 mGy and DLP is 1135 mGy-cm. This CT exam was performed using one or more of the following dose reduction techniques: automated exposure control, adjustment of the mA and/or kV according to patient size, and/or use of iterative reconstruction technique. COMPARISON: No relevant prior studies available. FINDINGS: No acute intracranial hemorrhage. No midline shift or mass effect. The territorial calhoun-white matter differentiation is maintained throughout. Age-related cerebral volume loss. Periventricular and subcortical white matter hypoattenuation, consistent with chronic microangiopathy. The visualized orbits appear grossly unremarkable. The calvarium is intact. The visualized paranasal sinuses and mastoid air cells are grossly clear. IMPRESSION: No acute intracranial hemorrhage, midline shift, or mass effect. EXAM: CT Cervical Spine Without Intravenous Contrast CLINICAL HISTORY: ITS.REASON CT Reason: fall injury TECHNIQUE: Axial computed tomography images of the cervical spine without intravenous contrast. CTDI is 11.8 mGy and DLP is 326.3 mGy-cm. This CT exam was performed using one or more of the following dose reduction techniques: automated exposure control, adjustment of the mA and/or kV according to patient size, and/or use of iterative reconstruction technique. COMPARISON: No relevant prior studies available. FINDINGS: The vertebral body heights are maintained. The craniocervical junction is intact. The atlanto-dens interval is maintained. The dens is intact. There is no spondylolisthesis. Multilevel cervical spondylosis and degenerative disc disease. Straightening of the cervical lordosis. IMPRESSION: No acute fracture or subluxation of the cervical spine.
--- NOTE | 2025-02-18 01:51 | ED ---
Fall HPI - General Chief Complaint: Fall Stated Complaint: Fall Time Seen by Provider: 02/17/25 23:59 Source: EMS Mode of arrival: EMS Limitations: altered mental status (Underlying dementia) - History of Present Illness MD Complaint: fall -: minutes(s) Fall From: other (Unknown, suspected from bed) When Fall Occurred: just prior to arrival Fall Witnessed: no Place Fall Occurred: long-term/SNF Loss of Consciousness: unsure Prolonged Down Time?: no Location: head Context: history of frequent falls - Related Data Previous Rx's Medication Instructions Recorded Vancomycin HCl in 5 % Dextrose 1.5 gm IV BID #28 plast..bag 10/02/20 [Vancomycin 1 Gram/250 ml-D5w] metroNIDAZOLE [Flagyl] 500 mg PO Q8HR #42 tab 10/02/20 Folic Acid 1 mg PO DAILY@1200 tab 10/05/20 Formoterol Fumarate [Perforomist] 20 mcg INHALATION RT-BID nebu 10/05/20 Heparin Sodium,Porcine (1 ml) 5,000 unit SQ Q12HR 21 Days #42 10/05/20 [Heparin Sodium] vial Multivitamins, Thera [Multivitamin 1 each PO DAILY tab 10/05/20 (formulary)] Nicotine 14Mg/24Hr Patch [Habitrol] 1 patch TRANSDERM DAILY patch 10/05/20 Pantoprazole [Protonix] 40 mg PO AC-BRKFST tablet. 10/05/20 Temazepam [Restoril] 15 mg PO HS PRN #3 cap 10/05/20 Thiamine [Vitamin B-1] 100 mg PO BID-W/MEALS tab 10/05/20 cloNIDine HCL [Catapres] 0.1 mg PO Q4HR PRN tab 10/05/20 cloNIDine HCL [Catapres] 0.1 mg PO TID tab 10/05/20 Allergies Allergy/AdvReac Type Severity Reaction Status Date / Time No Known Allergies Allergy Verified 09/28/20 13:40 Review of Systems ROS Statement: Those systems with pertinent positive or pertinent negative responses have been documented in the HPI. ROS Other: All systems not noted in ROS Statement are negative. 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 History of Any Multi-Drug Resistant Organisms: None Reported Past Surgical History: Ear Surgery Additional Past Surgical History / Comment(s): L ear surgery/wire Past Anesthesia/Blood Transfusion Reactions: No Reported Reaction Past Psychological History: No Psychological Hx Reported Smoking Status: Current every day smoker - Past Family History Father Family Medical History: Coronary Artery Disease (CAD) Additional Family Medical History / Comment(s): Father had CABG. He lived to be 92 yrs old. Mother Family Medical History: No Reported History Additional Family Medical History / Comment(s): Mother lived to be 90yrs old. She was a smoker. General Exam Limitations: altered mental status General appearance: alert, in no apparent distress Head exam: Present: normocephalic, other (There is abrasion and contusion overlying right temporal area. Moderate tenderness) Eye exam: Present: normal appearance, PERRL, EOMI. Absent: scleral icterus, c onjunctival injection ENT exam: Present: normal oropharynx Neck exam: Present: other (Cervical collar). Absent: tenderness Respiratory exam: Present: normal lung sounds bilaterally. Absent: respiratory distress, wheezes, rales, rhonchi, stridor, chest wall tenderness, accessory muscle use Cardiovascular Exam: Present: regular rate, normal rhythm, normal heart sounds. Absent: systolic murmur, diastolic murmur, rubs, gallop GI/Abdominal exam: Present: soft. Absent: distended, tenderness, guarding Extremities exam: Present: normal inspection, full ROM, normal capillary refill. Absent: tenderness Back exam: Present: normal inspection. Absent: vertebral tenderness Neurological exam: Present: alert. Absent: motor sensory deficit Skin exam: Present: warm, dry, normal color, abrasion. Absent: rash Course Vital Signs 02/18/25 02/18/25 02/18/25 00:00 01:19 02:00 Temperature 97.6 F Pulse Rate 64 65 60 Respiratory 20 18 20 Rate Blood Pressure 129/86 122/67 115/67 O2 Sat by Pulse 97 97 97 Oximetry 02/18/25 03:07 Temperature Pulse Rate 78 Respiratory 18 Rate Blood Pressure 118/78 O2 Sat by Pulse 97 Oximetry Medical Decision Making - Medical Decision Making The patient had CT scan of the brain and cervical spine that I interpreted as negative for acute fracture, negative for acute intracranial hemorrhage, mass effect or midline shift. Was pt. sent in by a medical professional or institution (MARQUIS Campos, CARDIOPULMONARY TECHNICIAN AND EEG TECH, urgent care, hospital, or long-term...) When possible be specific @ -[No] Did you speak to anyone other than the patient for history (EMS, parent, family, police, friend...)? What history was obtained from this source @ -[EMS gave much of the history Did you review nursing and triage notes (agree or disagree)? Why? @ -[I reviewed and agree with nursing and triage notes] Were old charts reviewed (outside hosp., previous admission, EMS record, old EKG, old radiological studies, urgent care reports/EKG's, long-term records)? Report findings @ -[No old charts were reviewed] Differential Diagnosis (chest pain, altered mental status, abdominal pain women, abdominal pain men, vaginal bleeding, weakness, fever, dyspnea, syncope, headache, dizziness, GI bleed, back pain, seizure, CVA, palpatations, mental health, musculoskeletal)? @ -Differential Musculoskeletal Muscular strain, contusion, ligament sprain, fracture, arthritis, septic arthritis, bursitis, cellulitis, muscle spasm, nerve compression, DVT, arterial occlusion, herpes zoster, electrolyte abnormality, tumor.... This is not meant to be in all inclusive list EKG interpreted by me (3pts min.). @ -[As above] X-rays interpreted by me (1pt min.). @ -[None done] CT interpreted by me (1pt min.). @ -[I interpreted as above U/S interpreted by me (1pt. min.). @ -[None done] What testing was considered but not performed or refused? (CT, X-rays, U/S, labs)? Why? @ -[None] What meds were considered but not given or refused? Why? @ -[None] Did you discuss the management of the patient with other professionals (ramone dunn i.e. MARQUIS Campos, CARDIOPULMONARY TECHNICIAN AND EEG TECH, lab, RT, psych nurse, social media content specialist, buckle wire inserter, teacher, personnel training officer, manager case)? Give summary @ -[No] Was smoking cessation discussed for >3mins.? @ -[No] Was critical care preformed (if so, how long)? @ -[No] Were there social determinants of health that impacted care today? How? (Homelessness, low income, unemployed, alcoholism, drug addiction, transportation, low edu. Level, literacy, decrease access to med. care, longterm, rehab)? @ -[No] Was there de-escalation of care discussed even if they declined (Discuss DNR or withdrawal of care, Hospice)? DNR status @ -[No] What co-morbidities impacted this encounter? (DM, HTN, Smoking, COPD, CAD, Cancer, CVA, ARF, Chemo, Hep., AIDS, mental health diagnosis, sleep apnea, morbid obesity)? @ -[None] Was patient admitted / discharged? Hospital course, mention meds given and route, prescriptions, significant lab abnormalities, going to OR and other pertinent info. @ -[Patient is 74-year-old man here to have evaluation after he had a fall. It was suspected that the patient fell from bed but no one did observe the fall. The patient did have moderate tenderness and swelling over temporal area and therefore CT scan obtained to rule out fracture. Undiagnosed new problem with uncertain prognosis? @ -[No] Drug Therapy requiring intensive monitoring for toxicity (Heparin, Nitro, Insulin, Cardizem)? @ -[No] Were any procedures done? @ -[No] Diagnosis/symptom? @ -[Acute fall injury Scalp contusion Closed head injury Acute, or Chronic, or Acute on Chronic? @ -[Acute Uncomplicated (without systemic symptoms) or Complicated (systemic symptoms)? @ -[Uncomplicated Side effects of treatment? @ -[No] Exacerbation, Progression, or Severe Exacerbation? @ -[No] Poses a threat to life or bodily function? How? (Chest pain, [place], [place], pneumonia, PE, COPD, DKA, ARF, appy, cholecystitis, CVA, Diverticulitis, Homicidal, Suicidal, threat to staff... and all critical care pts) @ -[No] All treatments are based on ideal body weight as in ED triage Disposition Clinical Impression: Fall, Contusion, Head injury Disposition: HOME SELF-CARE Condition: Good Instructions (If sedation given, give patient instructions): Fall Prevention for Older Adults (ED), Head Injury (ED) Is patient prescribed a controlled substance at d/c from ED?: No Referrals: Gladys Stout DO [Primary Care Provider] - 1-2 days
[2025-02-18] MEDS: ACETAMINOPHEN TAB 325 MG TAB PO STA (02:12)
[2025-02-18 03:07] VITALS: BP 118/78; PULSE 78; RESP 18
== END 2025-02-18 03:07 | disposition home or self-care (01) ==
LOC: EC 23:54
DX: S00.93XA Contusion of unspecified part of head, initial encounter (principal); F17.200 Nicotine dependence, unspecified, uncomplicated; W06.XXXA Fall from bed, initial encounter
CPT/HCPCS: 70450; 72125; 99284